=== PATIENT | female | born 1970 | race Caucasian/White ===

== ENCOUNTER 2016-10-26 13:37 | Emergency (ER) | payer OTHER ==
[2016-10-26] MEDS ORDERED: KETOROLAC 30 MG/ML VIAL (J1885) As Ordered ONE (14:55)
[2016-10-26] MEDS ORDERED: GASTROGRAFIN SOLUTION 30ML (Q9963) As Ordered ONE (14:55)
[2016-10-26 15:10] LABS: BASO # 0.2 K/mm3 (0.0-0.2); BASO % 1.6 % (0.0-1.0); EOS # 0.2 K/mm3 (0.0-0.50); EOS % 1.4 % (0.0-3.0); LARGE UNSTAINED CELL # 0.1 K/mm3 (0.0-0.4); LARGE UNSTAINED CELL % 1.2 % (0.0-4.0); LYMPH # 2.6 K/mm3 (1.5-4.5); LYMPH % 22.1 % (24.0-44.0); MEAN CORPUSCULAR HEMOGLOBIN 28.6 pg (27.0-33.0); MEAN CORPUSCULAR HGB CONC 32.9 g/dl (32.0-36.5); MEAN CORPUSCULAR VOLUME 87.1 fl (80.0-96.0); MONO # 0.4 K/mm3 (0.0-0.8); MONO % 3.3 % (0.0-5.0); NEUTROPHILS # 8.1 K/mm3 (1.8-7.7); NEUTROPHILS % 70.4 % (36.0-66.0); PLATELET COUNT, AUTOMATED 393 k/mm3 (150-450); RED CELL DISTRIBUTION WIDTH 13.1 % (11.5-14.5); WHITE BLOOD COUNT 11.5 K/mm3 (4.0-10.0)
[2016-10-26 15:28] LABS: ALBUMIN 3.8 GM/DL (3.2-5.2); ALBUMIN/GLOBULIN RATIO 0.86 (1.00-1.93); ALKALINE PHOSPHATASE 130 U/L (45-117); ALT/SGPT 21 U/L (12-78); AMYLASE 49 U/L (25-115); ANION GAP 8 MEQ/L (8-16); AST/SGOT 15 U/L (15-37); BILIRUBIN,DIRECT 0.1 MG/DL (0.0-0.2); BILIRUBIN,TOTAL 0.4 MG/DL (0.2-1.0); BLOOD UREA NITROGEN 13 MG/DL (7-18); CALCIUM LEVEL 9.4 MG/DL (8.5-10.1); CARBON DIOXIDE LEVEL 29 MEQ/L (21-32); CHLORIDE LEVEL 104 MEQ/L (98-107); CREATININE FOR GFR 0.79 MG/DL (0.55-1.02); GLOMERULAR FILTRATION RATE > 60.0 (>58); GLUCOSE, FASTING 89 MG/DL (70-105); POTASSIUM SERUM 3.9 MEQ/L (3.5-5.1); SODIUM LEVEL 141 MEQ/L (136-145); TOTAL PROTEIN 8.2 GM/DL (6.4-8.2)
[2016-10-26] MEDS ORDERED: ISOVUE-370 76% 100ML VIAL (Q9967) As Ordered ONE (16:32)
--- NOTE | 2016-10-26 17:53 | REP ---
CT ABDOMEN AND PELVIS WITH IV AND ORAL CONTRAST: HISTORY: Epigastric pain. History of multiple surgeries. CT CONTRAST DOSE: 100 mL Isovue-370 is administered intravenously. 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 The patient is status-post lumbosacral spine surgical fusion. There are clips in the right upper quadrant of the abdomen. The lung bases are clear. The liver and the spleen are normal in size, homogenous in texture. No adrenal lesion is seen on either side. There are sutures in the left upper quadrant consistent with gastric bypass surgery. The kidney enhance symmetrically and are morphologically intact. No retroperitoneal mass or adenopathy is seen. A normal appendix is seen in the right lower quadrant. Patient is also status-post hysterectomy. No abdominal wall defect is seen. No bony destructive lesion is appreciated. There is no evidence of free intraperitoneal air, abdominal mass, ascites, or abscess. IMPRESSION: No acute intraabdominal abnormality, postoperative changes including post-cholecystectomy, gastric bypass, lumbosacral spine fusion, and hysterectomy. Signed by Justino Chandler MD 10/26/2016 07:28 P
--- NOTE | 2016-10-26 17:56 | EDDOCDS ---
Nurse's Notes [facility] Name: Richelle Grajeda Age: 46 yrs Sex: Female : 1970 Arrival Date: 10/26/2016 Time: 13:37 Bed I3 / M3 Private MD: Pernell Prescott NCFM Diagnosis: Gastritis, unspecified Presentation: 10/26 13:46 Presenting complaint: Patient states: mid to upper right abdominal pain (x3 days) also srm left back pain. nausea no vomiting or Diarrhea. no abnormal vaginal bleeding. Risk factors: the patient reports no vaginal bleeding. Adult Sepsis Screening: The patient does not have new or worsening altered mentation. Patient's respiratory rate is less than 22. Systolic blood pressure is greater than 100. Patient has a qSOFA score of 0- Negative Sepsis Screen. Suicide/Homicide risk assessment- the patient denies having any suicidal and/or homicidal ideations and does not present with any other emotional, behavioral or mental health complaints. 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 Transition of care: patient was not received from another setting of care. 13:46 Acuity: TRISTIN Level 3 srm 13:46 Method Of Arrival: Walkin/Carried/Asstd srm Triage Assessment: 13:49 General: Appears in no apparent distress, Behavior is appropriate for age, cooperative. srm Pain: Pain currently is 7 out of 10 on a pain scale. HIV screening NA for this visit Offered previously. GI: Reports lower abdominal pain, nausea. 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 vitamins daily 2. Mytab Gas 80 mg oral chew as needed - PMHx: Asthma; Hypertension; - PSHx: Cholecystectomy; Hysterectomy; Tubal ligation; back surgery x2; D & C; Gastric Bypass; - Social history: Smoking status: Patient states was never smoker of tobacco. No barriers to communication noted, The patient speaks fluent Amharic, Speaks appropriately for age. - Family history: Not pertinent. - : The pt / caregiver states he / she is not on anticoagulants. Home medication list is obtained from the patient. - Exposure Risk Screening:: None identified. Screenin:05 Screening information is obtained from the patient. Fall risk: No risks identified. ms18 Assistance ADL's: requires no assistance with activities of daily living. Abuse/DV Screen: The patient / caregiver reports he/she is: not in a situation that causes fear, pain or injury. Nutritional screening: No deficits noted. Advance Directives: There is no living will. home support is adequate. Assessment: 15:05 General: Appears in no apparent distress, comfortable, obese, Behavior is appropriate ms18 for age, cooperative, pleasant. Neurological: Level of Consciousness is awake, alert, obeys commands, Oriented to person, place, time, Gait is steady, Speech is normal. Respiratory: Airway is patent Respiratory effort is even, unlabored, Respiratory pattern is regular, symmetrical. GI: Abdomen is obese, Bowel sounds present X 4 quads. Abd is soft X 4 quads. Derm: Skin is pink, warm & dry. 16:00 General: Appears in no apparent distress, comfortable, obese, Behavior is appropriate js13 for age, cooperative. Neurological: Level of Consciousness is awake, alert, obeys commands. Respiratory: Airway is patent Respiratory effort is even, unlabored, Respiratory pattern is regular, symmetrical. GI: Abdomen is obese, Bowel sounds present X 4 quads. Abd is soft. Derm: Skin is pink, warm & dry. 16:00 Pain: Location: back Pain currently is 3 out of 10 on a pain scale. js13 16:48 General: Appears in no apparent distress, comfortable, Behavior is appropriate for age, js13 cooperative. Pain: Location: back. Neurological: Level of Consciousness is awake, alert, obeys commands. Respiratory: Airway is patent Respiratory effort is even, unlabored, Respiratory pattern is regular, symmetrical. GI: Abdomen is obese, Abd is soft. Derm: Skin is pink, warm & dry. 17:53 Adult Sepsis Screening: The patient does not have new or worsening altered mentation. js13 Patient's respiratory rate is less than 22. Systolic blood pressure is greater than 100. Patient has a qSOFA score of 0- Negative Sepsis Screen. General: Appears in no apparent distress, comfortable, Behavior is appropriate for age, cooperative. Pain: Location: back. Neurological: Level of Consciousness is awake, alert, obeys commands. Respiratory: Airway is patent Respiratory effort is even, unlabored, Respiratory pattern is regular, symmetrical. GI: Abdomen is obese. Derm: Skin is pink, warm & dry. Vital Signs: 13:38 BP 163 / 104; Pulse 73; Resp 16; Temp 97.6(O); Pulse Ox 100% on R/A; Weight 118.39 kg; sew Height 5 ft. 2 in. (157.48 cm); Pain 7/10; 14:21 BP 140 / 89 Sitting (man/lg); jb5 17:54 BP 138 / 93 RA Sitting (auto/lg); Pulse 72; Resp 18; Temp 97.5(T); Pulse Ox 99% on R/A; rs6 Pain 5/10; 13:38 Body Mass Index 47.74 (118.39 kg, 157.48 cm) [facility] [place] Vitals: 13:38 Log In Time: October 26, 2016 at 13:34. [facility] [place] ED Course: 13:38 Patient visited by Rosanna Wolff. sew 13:38 Pernell Prescott is Private Physician. sew 13:38 Patient moved to Waiting sew 13:40 Patient visited by Rosanna Wolff. sew 13:40 Patient moved to Pre RCE sew 13:47 Triage Initiated srm 14:15 Patient moved to Triage 1 jb5 14:21 Patient visited by hRoda Simpson PCA. jb5 14:37 Karina Robledo PA-C is PHCP. dt4 14:37 Matthieu Cheng MD is Attending Physician. dt4 14:37 Patient visited by Karina Robledo PA-C. dt4 14:48 Patient moved to I3 / M3 jb5 15:00 [facility] Payment Agreement was scanned into [employer] and attached to record. mm15 15:04 CRP Sent. ms18 15:04 Amylase Sent. ms18 15:04 CBC with Diff Sent. ms18 15:04 Lipase Sent. ms18 15:04 Liver Profile Sent. ms18 15:04 Urinalysis Sent. ms18 15:04 Urine Culture Sent. ms18 15:05 The patient / caregiver is instructed regarding the plan of care and ED course. ms18 Accompanied by Family Member, Patient has correct armband on for positive identification. Placed in gown. Bed in low position. Call light in reach. Property :Personal belongings accompany Pt. 15:05 Inserted saline lock: 18 gauge in left antecubital area and blood collected. ms18 15:06 Basic Metabolic Profile Sent. ms18 15:38 Azucena PakRN is Primary Nurse. js13 16:01 Patient visited by Azucena Pak RN. js13 16:15 PHCP role handed off by Karina Robledo PA-C ar2 16:15 Frank Poe PA-C is PHCP. ar2 16:49 Patient visited by Azucena Pak RN. js13 17:44 Patient visited by Crystal Barreto COLLAR SEWER. rs6 17:53 Discontinued IV lock intact, bleeding controlled, pressure dressing applied, No js13 redness/swelling at site. No procedures done that require assistance. 17:54 Patient visited by Crystal Barreto COLLAR SEWER. rs6 Administered Medications: 15:00 Drug: ketorolac 30 mg [ketorolac 30 mg/mL (1 mL) injection solution (1 mL)] Route: IVP; js13 Site: left antecubital; 15:15 Follow up: Response: Pain is decreased js13 15:01 Drug: Diatrizoate Meglumine & Sodium 10 ml [diatrizoate meglumine and diat.sodium 66 js13 %-10 % oral solution (10 mL)] Route: PO; 15:31 Drug: Diatrizoate Meglumine & Sodium 10 ml [diatrizoate meglumine and diat.sodium 66 js13 %-10 % oral solution (10 mL)] Route: PO; Order Results: Lab Order: Amylase; SPEC'M 10/26/16 15:03 Test: AMYLASE; Value: 49; Range: 25-115; Units: U/L; Status: F Lab Order: Basic Metabolic Profile; SPEC'M 10/26/16 15:03 Test: GLUCOSE, FASTING; Value: 89; Range: 70-105; Units: MG/DL; Status: F Test: BLOOD UREA NITROGEN; Value: 13; Range: 7-18; Units: MG/DL; Status: F Test: CREATININE FOR GFR; Value: 0.79; Range: 0.55-1.02; Units: MG/DL; Status: F Test: GLOMERULAR FILTRATION RATE; Value: > 60.0; Range: >58; Status: F Test: SODIUM LEVEL; Value: 141; Range: 136-145; Units: MEQ/L; Status: F Test: POTASSIUM SERUM; Value: 3.9; Range: 3.5-5.1; Units: MEQ/L; Status: F Test: CHLORIDE LEVEL; Value: 104; Range: 98-107; Units: MEQ/L; Status: F Test: CARBON DIOXIDE LEVEL; Value: 29; Range: 21-32; Units: MEQ/L; Status: F Test: ANION GAP; Value: 8; Range: 8-16; Units: MEQ/L; Status: F Test: CALCIUM LEVEL; Value: 9.4; Range: 8.5-10.1; Units: MG/DL; Status: F Test Note: ; Units are mL/min/1.73 m2 Chronic Kidney Disease Staging per NKF: Stage I & II GFR >=60 Normal to Mildly Decreased Stage III GFR 30-59 Moderately Decreased Stage IV GFR 15-29 Severely Decreased Stage V GFR <15 Very Little GFR Left ESRD GFR <15 on CLINICAL INFORMATICS MANAGER Lab Order: CBC with Diff; SPEC'M 10/26/16 15:03 Test: WHITE BLOOD COUNT; Value: 11.5; Range: 4.0-10.0; Abnormal: Above high normal; Units: K/mm3; Status: F Test: RED BLOOD COUNT; Value: 5.44; Range: 4.00-5.40; Abnormal: Above high normal; Units: M/mm3; Status: F Test: HEMOGLOBIN; Value: 15.6; Range: 12.0-16.0; Units: g/dl; Status: F Test: HEMATOCRIT; Value: 47.4; Range: 36.0-47.0; Abnormal: Above high normal; Units: %; Status: F Test: MEAN CORPUSCULAR VOLUME; Value: 87.1; Range: 80.0-96.0; Units: fl; Status: F Test: MEAN CORPUSCULAR HEMOGLOBIN; Value: 28.6; Range: 27.0-33.0; Units: pg; Status: F Test: MEAN CORPUSCULAR HGB CONC; Value: 32.9; Range: 32.0-36.5; Units: g/dl; Status: F Test: RED CELL DISTRIBUTION WIDTH; Value: 13.1; Range: 11.5-14.5; Units: %; Status: F Test: PLATELET COUNT, AUTOMATED; Value: 393; Range: 150-450; Units: k/mm3; Status: F Test: NEUTROPHILS %; Value: 70.4; Range: 36.0-66.0; Abnormal: Above high normal; Units: %; Status: F Test: LYMPH %; Value: 22.1; Range: 24.0-44.0; Abnormal: Below low normal; Units: %; Status: F Test: MONO %; Value: 3.3; Range: 0.0-5.0; Units: %; Status: F Test: EOS %; Value: 1.4; Range: 0.0-3.0; Units: %; Status: F Test: BASO %; Value: 1.6; Range: 0.0-1.0; Abnormal: Above high normal; Units: %; Status: F Test: LARGE UNSTAINED CELL %; Value: 1.2; Range: 0.0-4.0; Units: %; Status: F Test: NEUTROPHILS #; Value: 8.1; Range: 1.8-7.7; Abnormal: Above high normal; Units: K/mm3; Status: F Test: LYMPH #; Value: 2.6; Range: 1.5-4.5; Units: K/mm3; Status: F Test: MONO #; Value: 0.4; Range: 0.0-0.8; Units: K/mm3; Status: F Test: EOS #; Value: 0.2; Range: 0.0-0.50; Units: K/mm3; Status: F Test: BASO #; Value: 0.2; Range: 0.0-0.2; Units: K/mm3; Status: F Test: LARGE UNSTAINED CELL #; Value: 0.1; Range: 0.0-0.4; Units: K/mm3; Status: F Lab Order: Lipase; SPEC'M 10/26/16 15:03 Test: LIPASE; Value: 143; Range: 73-393; Units: U/L; Status: F Lab Order: Liver Profile; SPEC'M 10/26/16 15:03 Test: AST/SGOT; Value: 15; Range: 15-37; Units: U/L; Status: F Test: ALT/SGPT; Value: 21; Range: 12-78; Units: U/L; Status: F Test: ALKALINE PHOSPHATASE; Value: 130; Range: 45-117; Abnormal: Above high normal; Units: U/L; Status: F Test: BILIRUBIN,TOTAL; Value: 0.4; Range: 0.2-1.0; Units: MG/DL; Status: F Test: BILIRUBIN,DIRECT; Value: 0.1; Range: 0.0-0.2; Units: MG/DL; Status: F Test: TOTAL PROTEIN; Value: 8.2; Range: 6.4-8.2; Units: GM/DL; Status: F Test: ALBUMIN; Value: 3.8; Range: 3.2-5.2; Units: GM/DL; Status: F Test: ALBUMIN/GLOBULIN RATIO; Value: 0.86; Range: 1.00-1.93; Abnormal: Below low normal; Status: F Lab Order: Urinalysis; SPEC'M 10/26/16 14:55 Test: APPEARANCE, URINE; Value: HAZY; Range: CLEAR; Status: F Test: COLOR, URINE; Value: YELLOW; Range: YELLOW; Status: F Test: PH,URINE; Value: 5.0; Range: 5.0-9.0; Units: UNITS; Status: F Test: SPECIFIC GRAVITY URINE AUTO; Value: 1.026; Range: 1.002-1.035; Status: F Test: PROTEIN, URINE AUTO; Value: NEGATIVE; Range: NEGATIVE; Units: mg/dL; Status: F Test: GLUCOSE, URINE (UA) AUTO; Value: NEGATIVE; Range: NEGATIVE; Units: mg/dL; Status: F Test: KETONE, URINE AUTO; Value: NEGATIVE; Range: NEGATIVE; Units: mg/dL; Status: F Test: UROBILINOGEN, URINE AUTO; Value: 0.2; Range: 0.0-2.0; Units: mg/dL; Status: F Test: BILIRUBIN, URINE AUTO; Value: NEGATIVE; Range: NEGATIVE; Status: F Test: NITRITE, URINE AUTO; Value: NEGATIVE; Range: NEGATIVE; Status: F Test: LEUKOCYTE ESTERASE, URINE AUTO; Value: NEGATIVE; Range: NEGATIVE; Status: F Test: BLOOD, URINE BLOOD; Value: NEGATIVE; Range: NEGATIVE; Status: F Test: WBC, URINE AUTO; Value: 2; Range: 0-3; Units: /HPF; Status: F Test: RBC, URINE AUTO; Value: 3; Range: 0-3; Units: /HPF; Status: F Test: BACTERIA, URINE AUTO; Value: 1+; Range: NEGATIVE; Abnormal: Above high normal; Status: F Test: SQUAMOUS EPITHELIAL CELL UR AU; Value: 3; Range: 0-6; Units: /HPF; Status: F Test: MUCUS, URINE; Value: SMALL; Range: NEGATIVE; Status: F Test: HYALINE CAST, URINE AUTO; Value: 0; Range: 0-1; Units: /LPF; Status: F Lab Order: CRP; SPEC'M 10/26/16 15:03 Test: C REACTIVE PROTEIN QUANTITATIV; Value: 0.59; Range: 0.00-0.30; Abnormal: Above high normal; Units: MG/DL; Status: F Outcome: 17:48 Discharge ordered by Provider. ar2 17:53 Discharge Assessment: Patient awake, alert and oriented x 3. No cognitive and/or js13 functional deficits noted. Patient verbalized understanding of disposition instructions. patient administered narcotics - no. The following High Risk Discharge criteria are identified: None. Discharged to home ambulatory, with family. Condition: stable. Discharge instructions given to patient, Instructed on discharge instructions, follow up and referral plans. medication usage, Demonstrated understanding of instructions, medications, Pt was receptive of discharge instructions/ teaching. Prescriptions given X 1. CT Study completed. 17:54 Patient left the ED. js13 Signatures: Josee Gabriel, RN RN srm Rhoda Simpson, COLLAR SEWER COLLAR SEWER jb5 Frank Poe PA-C PAAnthony ar2 Azucena Pak RN RN js13 Rosanna Wolff Marlynn mm15 Karina Robledo PAAaliyahC PA-C dt4 Amanda Vaca RN RN ms18 Crystal Barreto, COLLAR SEWER COLLAR SEWER rs6 MTDD
--- NOTE | 2016-10-26 17:56 | EDDOCDS ---
Physician Documentation [facility] Name: Richelle Grajeda Age: 46 yrs Sex: Female : 1970 Arrival Date: 10/26/2016 Time: 13:37 Bed I3 / M3 Private MD: Pernell Prescott [facility] Disposition: 10/26/16 17:48 Discharged to Home/Self Care. Impression: Gastritis, unspecified. - Condition is Stable. - Discharge Instructions: Gastritis, Adult. - Prescriptions for Prilosec 20 mg Oral Capsule, Delayed Release(E.C.) - take 1 capsule by ORAL route every 12 hours; 20 capsule. - Medication Reconciliation, Local Pharmacy Hours form. - Follow up: Private Physician; When: Call to arrange an appointment; Reason: Recheck today's complaints, Continuance of care. Follow up: Emergency Department; When: As needed; Reason: Fever > 102F, Worsening of conditions. - Problem is new. - Symptoms are unchanged. Historical: - Allergies: hctz (Rash); - Home Meds: 1. vitamins daily 2. Mytab Gas 80 mg oral chew as needed - PMHx: Asthma; Hypertension; - PSHx: Cholecystectomy; Hysterectomy; Tubal ligation; back surgery x2; D & C; Gastric Bypass; - Social history: Smoking status: Patient states was never smoker of tobacco. No barriers to communication noted, The patient speaks fluent Japanese, Speaks appropriately for age. - Family history: Not pertinent. - : The pt / caregiver states he / she is not on anticoagulants. Home medication list is obtained from the patient. - Exposure Risk Screening:: None identified. 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 2 in. (157.48 cm); Pain 7/10; 14:21 BP 140 / 89 Sitting (man/lg); jb5 17:54 BP 138 / 93 RA Sitting (auto/lg); Pulse 72; Resp 18; Temp 97.5(T); Pulse Ox 99% on R/A; rs6 Pain 5/10; 13:38 Body Mass Index 47.74 (118.39 kg, 157.48 cm) sew MDM: 14:01 Recheck B/P ordered. dt4 14:50 ketorolac 30 mg IVP once ordered. dt4 14:50 IV Saline Lock ordered. dt4 14:50 Undress patient appropriately for examination ordered. dt4 14:51 Amylase Ordered. EDMS 14:51 Basic Metabolic Profile Ordered. EDMS 14:51 CBC with Diff Ordered. EDMS 14:51 Lipase Ordered. EDMS 14:51 Liver Profile Ordered. EDMS 14:51 Urinalysis Ordered. EDMS 14:51 Urine Culture Ordered. EDMS 14:51 CRP Ordered. EDMS 14:51 CT ABD & PELVIS: IV and Oral Contrast Ordered. EDMS 14:51 NOTHING BY MOUTH+DIET ordered. EDMS 14:52 Financial registration complete. mm15 15:00 [facility] Payment Agreement was scanned into [employer] and attached to record. mm15 15:01 Diatrizoate Meglumine & Sodium Liquid 10 ml PO once; mix in 290cc of water ordered. js13 15:01 Diatrizoate Meglumine & Sodium Liquid 10 ml PO once; mix in 290cc of water ordered. js13 16:42 CBC with Diff Reviewed. ar2 16:42 Liver Profile Reviewed. ar2 16:42 Urinalysis Reviewed. ar2 16:42 CRP Reviewed. ar2 16:42 Amylase Reviewed. ar2 16:42 Basic Metabolic Profile Reviewed. ar2 16:42 Lipase Reviewed. ar2 Administered Medications: 15:00 Drug: ketorolac 30 mg [ketorolac 30 mg/mL (1 mL) injection solution (1 mL)] Route: IVP; js13 Site: left antecubital; 15:15 Follow up: Response: Pain is decreased js13 15:01 Drug: Diatrizoate Meglumine & Sodium 10 ml [diatrizoate meglumine and diat.sodium 66 js13 %-10 % oral solution (10 mL)] Route: PO; 15:31 Drug: Diatrizoate Meglumine & Sodium 10 ml [diatrizoate meglumine and diat.sodium 66 js13 %-10 % oral solution (10 mL)] Route: PO; Signatures: Dispatcher [employer] EDMS Josee Gabriel, ELISA RN srm Frank Poe PA-C PA-C ar2 Azucena Pak,RN RN js13 Tamra Velez mm15 Karina Robledo PA-C PA-C dt4 Amanda Vaca RN RN ms18 The chart was reviewed and I authenticate all verbal orders and agree with the evaluation and treatment provided.Attachments: 15:00 [facility] Payment Agreement mm15 MTDD
--- NOTE | 2016-10-29 13:09 | EDDOCDS ---
Nurse's Notes [facility] Name: Richelle Grajeda Age: 46 yrs Sex: Female : 1970 Arrival Date: 10/26/2016 Time: 13:37 Bed I3 / M3 Private MD: Pernell Prescott NCFM Diagnosis: Gastritis, unspecified Presentation: 10/26 13:46 Presenting complaint: Patient states: mid to upper right abdominal pain (x3 days) also srm left back pain. nausea no vomiting or Diarrhea. no abnormal vaginal bleeding. Risk factors: the patient reports no vaginal bleeding. Adult Sepsis Screening: The patient does not have new or worsening altered mentation. Patient's respiratory rate is less than 22. Systolic blood pressure is greater than 100. Patient has a qSOFA score of 0- Negative Sepsis Screen. Suicide/Homicide risk assessment- the patient denies having any suicidal and/or homicidal ideations and does not present with any other emotional, behavioral or mental health complaints. Status: Patient is not a service manager or dependent. Transition of care: patient was not received from another setting of care. 13:46 Acuity: TRISTIN Level 3 srm 13:46 Method Of Arrival: Walkin/Carried/Asstd srm Triage Assessment: 13:49 General: Appears in no apparent distress, Behavior is appropriate for age, cooperative. srm Pain: Pain currently is 7 out of 10 on a pain scale. HIV screening NA for this visit Offered previously. GI: Reports lower abdominal pain, nausea. DIRECTOR OF EMERGENCY NURSING: 13:49 LMP N/A - Hysterectomy srm Historical: - Allergies: hctz (Rash); - Home Meds: 1. vitamins daily 2. Mytab Gas 80 mg oral chew as needed - PMHx: Asthma; Hypertension; - PSHx: Cholecystectomy; Hysterectomy; Tubal ligation; back surgery x2; D & C; Gastric Bypass; - Social history: Smoking status: Patient states was never smoker of tobacco. No barriers to communication noted, The patient speaks fluent Welsh, Speaks appropriately for age. - Family history: Not pertinent. - : The pt / caregiver states he / she is not on anticoagulants. Home medication list is obtained from the patient. - Exposure Risk Screening:: None identified. Screenin:05 Screening information is obtained from the patient. Fall risk: No risks identified. ms18 Assistance ADL's: requires no assistance with activities of daily living. Abuse/DV Screen: The patient / caregiver reports he/she is: not in a situation that causes fear, pain or injury. Nutritional screening: No deficits noted. Advance Directives: There is no living will. home support is adequate. Assessment: 15:05 General: Appears in no apparent distress, comfortable, obese, Behavior is appropriate ms18 for age, cooperative, pleasant. Neurological: Level of Consciousness is awake, alert, obeys commands, Oriented to person, place, time, Gait is steady, Speech is normal. Respiratory: Airway is patent Respiratory effort is even, unlabored, Respiratory pattern is regular, symmetrical. GI: Abdomen is obese, Bowel sounds present X 4 quads. Abd is soft X 4 quads. Derm: Skin is pink, warm & dry. 16:00 General: Appears in no apparent distress, comfortable, obese, Behavior is appropriate js13 for age, cooperative. Neurological: Level of Consciousness is awake, alert, obeys commands. Respiratory: Airway is patent Respiratory effort is even, unlabored, Respiratory pattern is regular, symmetrical. GI: Abdomen is obese, Bowel sounds present X 4 quads. Abd is soft. Derm: Skin is pink, warm & dry. 16:00 Pain: Location: back Pain currently is 3 out of 10 on a pain scale. js13 16:48 General: Appears in no apparent distress, comfortable, Behavior is appropriate for age, js13 cooperative. Pain: Location: back. Neurological: Level of Consciousness is awake, alert, obeys commands. Respiratory: Airway is patent Respiratory effort is even, unlabored, Respiratory pattern is regular, symmetrical. GI: Abdomen is obese, Abd is soft. Derm: Skin is pink, warm & dry. 17:53 Adult Sepsis Screening: The patient does not have new or worsening altered mentation. js13 Patient's respiratory rate is less than 22. Systolic blood pressure is greater than 100. Patient has a qSOFA score of 0- Negative Sepsis Screen. General: Appears in no apparent distress, comfortable, Behavior is appropriate for age, cooperative. Pain: Location: back. Neurological: Level of Consciousness is awake, alert, obeys commands. Respiratory: Airway is patent Respiratory effort is even, unlabored, Respiratory pattern is regular, symmetrical. GI: Abdomen is obese. Derm: Skin is pink, warm & dry. Vital Signs: 13:38 BP 163 / 104; Pulse 73; Resp 16; Temp 97.6(O); Pulse Ox 100% on R/A; Weight 118.39 kg; sew Height 5 ft. 2 in. (157.48 cm); Pain 7/10; 14:21 BP 140 / 89 Sitting (man/lg); jb5 17:54 BP 138 / 93 RA Sitting (auto/lg); Pulse 72; Resp 18; Temp 97.5(T); Pulse Ox 99% on R/A; rs6 Pain 5/10; 13:38 Body Mass Index 47.74 (118.39 kg, 157.48 cm) [facility] Vitals: 13:38 Log In Time: October 26, 2016 at 13:34. [facility] ED Course: 13:38 Patient visited by Rosanna Wolff. sew 13:38 Pernell Prescott is Private Physician. sew 13:38 Patient moved to Waiting sew 13:40 Patient visited by Rosanna Wolff. sew 13:40 Patient moved to Pre RCE sew 13:47 Triage Initiated srm 14:15 Patient moved to Triage 1 jb5 14:21 Patient visited by Rhoda Simpson PCA. jb5 14:37 Karina Robledo PA-C is PHCP. dt4 14:37 Matthieu Cheng MD is Attending Physician. dt4 14:37 Patient visited by Karina Robledo PA-C. dt4 14:48 Patient moved to I3 / M3 jb5 15:00 [facility] Payment Agreement was scanned into [employer] and attached to record. mm15 15:04 CRP Sent. ms18 15:04 Amylase Sent. ms18 15:04 CBC with Diff Sent. ms18 15:04 Lipase Sent. ms18 15:04 Liver Profile Sent. ms18 15:04 Urinalysis Sent. ms18 15:04 Urine Culture Sent. ms18 15:05 The patient / caregiver is instructed regarding the plan of care and ED course. ms18 Accompanied by Family Member, Patient has correct armband on for positive identification. Placed in gown. Bed in low position. Call light in reach. Property :Personal belongings accompany Pt. 15:05 Inserted saline lock: 18 gauge in left antecubital area and blood collected. ms18 15:06 Basic Metabolic Profile Sent. ms18 15:38 Azucena Pak,RN is Primary Nurse. js13 16:01 Patient visited by Azucena Pak RN. js13 16:15 PHCP role handed off by Karina Robledo PA-C ar2 16:15 Frank Poe PA-C is PHCP. ar2 16:49 Patient visited by Azucena Pak RN. js13 17:44 Patient visited by Crystal Barreto PCA. rs6 17:53 Discontinued IV lock intact, bleeding controlled, pressure dressing applied, No js13 redness/swelling at site. No procedures done that require assistance. 17:54 Patient visited by Crystal Barreto PCA. rs6 18:38 CT ABD & PELVIS: IV and Oral Contrast Returned. EDMS 10/27 09:28 T-Sheet-- Draft Copy was scanned into [employer] and attached to record. [facility] 11:57 Radiology Report was scanned into [employer] and attached to record. gb Administered Medications: 10/26 15:00 Drug: ketorolac 30 mg [ketorolac 30 mg/mL (1 mL) injection solution (1 mL)] Route: IVP; js13 Site: left antecubital; 15:15 Follow up: Response: Pain is decreased js13 15:01 Drug: Diatrizoate Meglumine & Sodium 10 ml [diatrizoate meglumine and diat.sodium 66 js13 %-10 % oral solution (10 mL)] Route: PO; 15:31 Drug: Diatrizoate Meglumine & Sodium 10 ml [diatrizoate meglumine and diat.sodium 66 js13 %-10 % oral solution (10 mL)] Route: PO; Order Results: Lab Order: Amylase; SPEC'M 10/26/16 15:03 Test: AMYLASE; Value: 49; Range: 25-115; Units: U/L; Status: F Lab Order: Basic Metabolic Profile; SPEC'M 10/26/16 15:03 Test: GLUCOSE, FASTING; Value: 89; Range: 70-105; Units: MG/DL; Status: F Test: BLOOD UREA NITROGEN; Value: 13; Range: 7-18; Units: MG/DL; Status: F Test: CREATININE FOR GFR; Value: 0.79; Range: 0.55-1.02; Units: MG/DL; Status: F Test: GLOMERULAR FILTRATION RATE; Value: > 60.0; Range: >58; Status: F Test: SODIUM LEVEL; Value: 141; Range: 136-145; Units: MEQ/L; Status: F Test: POTASSIUM SERUM; Value: 3.9; Range: 3.5-5.1; Units: MEQ/L; Status: F Test: CHLORIDE LEVEL; Value: 104; Range: 98-107; Units: MEQ/L; Status: F Test: CARBON DIOXIDE LEVEL; Value: 29; Range: 21-32; Units: MEQ/L; Status: F Test: ANION GAP; Value: 8; Range: 8-16; Units: MEQ/L; Status: F Test: CALCIUM LEVEL; Value: 9.4; Range: 8.5-10.1; Units: MG/DL; Status: F Test Note: ; Units are mL/min/1.73 m2 Chronic Kidney Disease Staging per NKF: Stage I & II GFR >=60 Normal to Mildly Decreased Stage III GFR 30-59 Moderately Decreased Stage IV GFR 15-29 Severely Decreased Stage V GFR <15 Very Little GFR Left ESRD GFR <15 on EMBEDDED CASE MANAGER Lab Order: CBC with Diff; SPEC'M 10/26/16 15:03 Test: WHITE BLOOD COUNT; Value: 11.5; Range: 4.0-10.0; Abnormal: Above high normal; Units: K/mm3; Status: F Test: RED BLOOD COUNT; Value: 5.44; Range: 4.00-5.40; Abnormal: Above high normal; Units: M/mm3; Status: F Test: HEMOGLOBIN; Value: 15.6; Range: 12.0-16.0; Units: g/dl; Status: F Test: HEMATOCRIT; Value: 47.4; Range: 36.0-47.0; Abnormal: Above high normal; Units: %; Status: F Test: MEAN CORPUSCULAR VOLUME; Value: 87.1; Range: 80.0-96.0; Units: fl; Status: F Test: MEAN CORPUSCULAR HEMOGLOBIN; Value: 28.6; Range: 27.0-33.0; Units: pg; Status: F Test: MEAN CORPUSCULAR HGB CONC; Value: 32.9; Range: 32.0-36.5; Units: g/dl; Status: F Test: RED CELL DISTRIBUTION WIDTH; Value: 13.1; Range: 11.5-14.5; Units: %; Status: F Test: PLATELET COUNT, AUTOMATED; Value: 393; Range: 150-450; Units: k/mm3; Status: F Test: NEUTROPHILS %; Value: 70.4; Range: 36.0-66.0; Abnormal: Above high normal; Units: %; Status: F Test: LYMPH %; Value: 22.1; Range: 24.0-44.0; Abnormal: Below low normal; Units: %; Status: F Test: MONO %; Value: 3.3; Range: 0.0-5.0; Units: %; Status: F Test: EOS %; Value: 1.4; Range: 0.0-3.0; Units: %; Status: F Test: BASO %; Value: 1.6; Range: 0.0-1.0; Abnormal: Above high normal; Units: %; Status: F Test: LARGE UNSTAINED CELL %; Value: 1.2; Range: 0.0-4.0; Units: %; Status: F Test: NEUTROPHILS #; Value: 8.1; Range: 1.8-7.7; Abnormal: Above high normal; Units: K/mm3; Status: F Test: LYMPH #; Value: 2.6; Range: 1.5-4.5; Units: K/mm3; Status: F Test: MONO #; Value: 0.4; Range: 0.0-0.8; Units: K/mm3; Status: F Test: EOS #; Value: 0.2; Range: 0.0-0.50; Units: K/mm3; Status: F Test: BASO #; Value: 0.2; Range: 0.0-0.2; Units: K/mm3; Status: F Test: LARGE UNSTAINED CELL #; Value: 0.1; Range: 0.0-0.4; Units: K/mm3; Status: F Lab Order: Lipase; SPEC'M 10/26/16 15:03 Test: LIPASE; Value: 143; Range: 73-393; Units: U/L; Status: F Lab Order: Liver Profile; SPEC'M 10/26/16 15:03 Test: AST/SGOT; Value: 15; Range: 15-37; Units: U/L; Status: F Test: ALT/SGPT; Value: 21; Range: 12-78; Units: U/L; Status: F Test: ALKALINE PHOSPHATASE; Value: 130; Range: 45-117; Abnormal: Above high normal; Units: U/L; Status: F Test: BILIRUBIN,TOTAL; Value: 0.4; Range: 0.2-1.0; Units: MG/DL; Status: F Test: BILIRUBIN,DIRECT; Value: 0.1; Range: 0.0-0.2; Units: MG/DL; Status: F Test: TOTAL PROTEIN; Value: 8.2; Range: 6.4-8.2; Units: GM/DL; Status: F Test: ALBUMIN; Value: 3.8; Range: 3.2-5.2; Units: GM/DL; Status: F Test: ALBUMIN/GLOBULIN RATIO; Value: 0.86; Range: 1.00-1.93; Abnormal: Below low normal; Status: F Lab Order: Urinalysis; SPEC'M 10/26/16 14:55 Test: APPEARANCE, URINE; Value: HAZY; Range: CLEAR; Status: F Test: COLOR, URINE; Value: YELLOW; Range: YELLOW; Status: F Test: PH,URINE; Value: 5.0; Range: 5.0-9.0; Units: UNITS; Status: F Test: SPECIFIC GRAVITY URINE AUTO; Value: 1.026; Range: 1.002-1.035; Status: F Test: PROTEIN, URINE AUTO; Value: NEGATIVE; Range: NEGATIVE; Units: mg/dL; Status: F Test: GLUCOSE, URINE (UA) AUTO; Value: NEGATIVE; Range: NEGATIVE; Units: mg/dL; Status: F Test: KETONE, URINE AUTO; Value: NEGATIVE; Range: NEGATIVE; Units: mg/dL; Status: F Test: UROBILINOGEN, URINE AUTO; Value: 0.2; Range: 0.0-2.0; Units: mg/dL; Status: F Test: BILIRUBIN, URINE AUTO; Value: NEGATIVE; Range: NEGATIVE; Status: F Test: NITRITE, URINE AUTO; Value: NEGATIVE; Range: NEGATIVE; Status: F Test: LEUKOCYTE ESTERASE, URINE AUTO; Value: NEGATIVE; Range: NEGATIVE; Status: F Test: BLOOD, URINE BLOOD; Value: NEGATIVE; Range: NEGATIVE; Status: F Test: WBC, URINE AUTO; Value: 2; Range: 0-3; Units: /HPF; Status: F Test: RBC, URINE AUTO; Value: 3; Range: 0-3; Units: /HPF; Status: F Test: BACTERIA, URINE AUTO; Value: 1+; Range: NEGATIVE; Abnormal: Above high normal; Status: F Test: SQUAMOUS EPITHELIAL CELL UR AU; Value: 3; Range: 0-6; Units: /HPF; Status: F Test: MUCUS, URINE; Value: SMALL; Range: NEGATIVE; Status: F Test: HYALINE CAST, URINE AUTO; Value: 0; Range: 0-1; Units: /LPF; Status: F Lab Order: Urine Culture; SPEC'M 10/26/16 14:54 Test: URINE CULTURE; Value: ORGANISM 1: ENTEROBACTER AEROGENES; Status: F Test: URINE CULTURE; Value: ENTEROBACTER AEROGENES; Status: F Test: URINE CULTURE; Value: COLONY COUNT CFU/ml >100,000; Status: F Test: URINE CULTURE; Value: GRAM NEG SENSI - VITEK 80; Status: F Test: URINE CULTURE; Value: Method: VIT2; Status: F Test: URINE CULTURE; Value: TRIMETHOPRIM/SULFAMETHOXAZOLE <=20 S; Status: F Test: URINE CULTURE; Value: GENTAMICIN <=1 S; Status: F Test: URINE CULTURE; Value: NITROFURANTOIN 64 I; Status: F Test: URINE CULTURE; Value: CEFAZOLIN >=64 R; Status: F Test: URINE CULTURE; Value: LEVOFLOXACIN <=0.12 S; Status: F Test: URINE CULTURE; Value: TOBRAMYCIN <=1 S; Status: F Test: URINE CULTURE; Value: CEFTRIAXONE <=1 S; Status: F Test: URINE CULTURE; Value: CEFTAZIDIME <=1 S; Status: F Test: URINE CULTURE; Value: PIPERACILLIN/TAZOBACTAM 8 S; Status: F Test: URINE CULTURE; Value: AZTREONAM <=1 S; Status: F Test: URINE CULTURE; Value: ERTAPENEM <=0.5 S; Status: F Test: URINE CULTURE; Value: MEROPENEM <=0.25 S; Status: F Test: URINE CULTURE; Value: TIGECYCLINE 1 S; Status: F Test: URINE CULTURE; Value: CEFEPIME <=1 S; Status: F Lab Order: CRP; SPEC'M 10/26/16 15:03 Test: C REACTIVE PROTEIN QUANTITATIV; Value: 0.59; Range: 0.00-0.30; Abnormal: Above high normal; Units: MG/DL; Status: F Radiology Order: CT ABD & PELVIS: IV and Oral Contrast Test: CT ABD & PELVIS: IV and Oral Contrast REASON FOR EXAMINATION: epigastric pain, hx of mult surg; CT ABDOMEN AND PELVIS WITH IV AND ORAL CONTRAST:; ; HISTORY: Epigastric pain. 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 The patient is status-post lumbosacral spine surgical fusion. There; are clips in the right upper quadrant of the abdomen. The lung bases are clear.; The liver and the spleen are normal in size, homogenous in texture. No adrenal; lesion is seen on either side. There are sutures in the left upper quadrant; consistent with gastric bypass surgery. The kidney enhance symmetrically and are; morphologically intact. No retroperitoneal mass or adenopathy is seen. A normal; appendix is seen in the right lower quadrant. Patient is also status-post; hysterectomy. No abdominal wall defect is seen. No bony destructive lesion is; appreciated. There is no evidence of free intraperitoneal air, abdominal mass,; ascites, or abscess.; ; IMPRESSION:; ; No acute intraabdominal abnormality, postoperative changes including; post-cholecystectomy, gastric bypass, lumbosacral spine fusion, and hysterectomy.; ; ; ; Signed by; Justino Chandler MD 10/26/2016 07:28 P; Outcome: 17:48 Discharge ordered by Provider. ar2 17:53 Discharge Assessment: Patient awake, alert and oriented x 3. No cognitive and/or js13 functional deficits noted. Patient verbalized understanding of disposition instructions. patient administered narcotics - no. The following High Risk Discharge criteria are identified: None. Discharged to home ambulatory, with family. Condition: stable. Discharge instructions given to patient, Instructed on discharge instructions, follow up and referral plans. medication usage, Demonstrated understanding of instructions, medications, Pt was receptive of discharge instructions/ teaching. Prescriptions given X 1. CT Study completed. 17:54 Patient left the ED. js13 Addendum: 10/29/2016 13:06 Narrative: Urine culture results reviewed with Gunner Camacho and Rx written for Bactrim DS kcs 1 tab BID x 5 days - patient contacted and requests [facility] in [place]. Rx called in. Signatures: Dispatcher [employer] EDMS Luz Elena Eaton, RN RN kcs Josee Gabriel, RN RN srm Barmerary, Dania, Reg Reg gb Rhoda Simpson, SHRIMP PEELING MACHINE OPERATOR SHRIMP PEELING MACHINE OPERATOR jb5 Frank Poe PA-C PA-C ar2 Azucena Pak RN RN js13 New, Tamra Resendez mm15 Karina Robledo PA-C PA-Vangie dt4 Amanda Vaca RN RN ms18 Crystal Barreto, SHRIMP PEELING MACHINE OPERATOR SHRIMP PEELING MACHINE OPERATOR rs6 Kitty, Rosanna munoz MTDD
--- NOTE | 2016-10-29 13:09 | EDDOCDS ---
Physician Documentation [facility] Name: Richelle Grajeda Age: 46 yrs Sex: Female : 1970 Arrival Date: 10/26/2016 Time: 13:37 Bed I3 / M3 Private MD: Pernell Prescott [facility] Disposition: 10/26/16 17:48 Discharged to Home/Self Care. Impression: Gastritis, unspecified. - Condition is Stable. - Discharge Instructions: Gastritis, Adult. - Prescriptions for Prilosec 20 mg Oral Capsule, Delayed Release(E.C.) - take 1 capsule by ORAL route every 12 hours; 20 capsule. - Medication Reconciliation, Local Pharmacy Hours form. - Follow up: Private Physician; When: Call to arrange an appointment; Reason: Recheck today's complaints, Continuance of care. Follow up: Emergency Department; When: As needed; Reason: Fever > 102F, Worsening of conditions. - Problem is new. - Symptoms are unchanged. Historical: - Allergies: hctz (Rash); - Home Meds: 1. vitamins daily 2. Mytab Gas 80 mg oral chew as needed - PMHx: Asthma; Hypertension; - PSHx: Cholecystectomy; Hysterectomy; Tubal ligation; back surgery x2; D & C; Gastric Bypass; - Social history: Smoking status: Patient states was never smoker of tobacco. No barriers to communication noted, The patient speaks fluent Persian, Speaks appropriately for age. - Family history: Not pertinent. - : The pt / caregiver states he / she is not on anticoagulants. Home medication list is obtained from the patient. - Exposure Risk Screening:: None identified. PULMONARY PHYSICIAN: 10/26 13:49 LMP N/A - Hysterectomy srm Vital Signs: 13:38 BP 163 / 104; Pulse 73; Resp 16; Temp 97.6(O); Pulse Ox 100% on R/A; Weight 118.39 kg / sew 261.01 lbs; Height 5 ft. 2 in. (157.48 cm); Pain 7/10; 14:21 BP 140 / 89 Sitting (man/lg); jb5 17:54 BP 138 / 93 RA Sitting (auto/lg); Pulse 72; Resp 18; Temp 97.5(T); Pulse Ox 99% on R/A; rs6 Pain 5/10; 13:38 Body Mass Index 47.74 (118.39 kg, 157.48 cm) sew MDM: 14:01 Recheck B/P ordered. dt4 14:50 ketorolac 30 mg IVP once ordered. dt4 14:50 IV Saline Lock ordered. dt4 14:50 Undress patient appropriately for examination ordered. dt4 14:51 Amylase Ordered. EDMS 14:51 Basic Metabolic Profile Ordered. EDMS 14:51 CBC with Diff Ordered. EDMS 14:51 Lipase Ordered. EDMS 14:51 Liver Profile Ordered. EDMS 14:51 Urinalysis Ordered. EDMS 14:51 Urine Culture Ordered. EDMS 14:51 CRP Ordered. EDMS 14:51 CT ABD & PELVIS: IV and Oral Contrast Ordered. EDMS 14:51 NOTHING BY MOUTH+DIET ordered. EDMS 14:52 Financial registration complete. mm15 15:00 [facility] Payment Agreement was scanned into [employer] and attached to record. mm15 15:01 Diatrizoate Meglumine & Sodium Liquid 10 ml PO once; mix in 290cc of water ordered. js13 15:01 Diatrizoate Meglumine & Sodium Liquid 10 ml PO once; mix in 290cc of water ordered. js13 16:42 CBC with Diff Reviewed. ar2 16:42 Liver Profile Reviewed. ar2 16:42 Urinalysis Reviewed. ar2 16:42 CRP Reviewed. ar2 16:42 Amylase Reviewed. ar2 16:42 Basic Metabolic Profile Reviewed. ar2 16:42 Lipase Reviewed. ar2 10/27 09:28 T-Sheet-- Draft Copy was scanned into [employer] and attached to record. [facility] 11:57 Radiology Report was scanned into [employer] and attached to record. gb Administered Medications: 10/26 15:00 Drug: ketorolac 30 mg [ketorolac 30 mg/mL (1 mL) injection solution (1 mL)] Route: IVP; js13 Site: left antecubital; 15:15 Follow up: Response: Pain is decreased js13 15:01 Drug: Diatrizoate Meglumine & Sodium 10 ml [diatrizoate meglumine and diat.sodium 66 js13 %-10 % oral solution (10 mL)] Route: PO; 15:31 Drug: Diatrizoate Meglumine & Sodium 10 ml [diatrizoate meglumine and diat.sodium 66 js13 %-10 % oral solution (10 mL)] Route: PO; Signatures: Dispatcher [employer] EDJosee Chung, ELISA RN [facility] Dania Bai, Reg Reg gb Frank Poe PA-C PA-C ar2 Azucena Pak RN RN js13 Tamra Velez mm15 Karina Robledo PA-C PA-C dt4 Amanda Vaca RN RN ms18 Rosanna Tang The chart was reviewed and I authenticate all verbal orders and agree with the evaluation and treatment provided.Attachments: 15:00 [facility] Payment Agreement mm15 10/27 09:28 T-Sheet-- Draft Copy [facility] MTDD
--- NOTE | 2016-10-29 13:09 | EDDOCDS ---
Physician Documentation [facility] Name: Richelle Grajeda Age: 46 yrs Sex: Female : 1970 Arrival Date: 10/26/2016 Time: 13:37 Bed I3 / M3 Private MD: Pernell Prescott [facility] Disposition: 10/26/16 17:48 Discharged to Home/Self Care. Impression: Gastritis, unspecified. - Condition is Stable. - Discharge Instructions: Gastritis, Adult. - Prescriptions for Prilosec 20 mg Oral Capsule, Delayed Release(E.C.) - take 1 capsule by ORAL route every 12 hours; 20 capsule. - Medication Reconciliation, Local Pharmacy Hours form. - Follow up: Private Physician; When: Call to arrange an appointment; Reason: Recheck today's complaints, Continuance of care. Follow up: Emergency Department; When: As needed; Reason: Fever > 102F, Worsening of conditions. - Problem is new. - Symptoms are unchanged. Historical: - Allergies: hctz (Rash); - Home Meds: 1. vitamins daily 2. Mytab Gas 80 mg oral chew as needed - PMHx: Asthma; Hypertension; - PSHx: Cholecystectomy; Hysterectomy; Tubal ligation; back surgery x2; D & C; Gastric Bypass; - Social history: Smoking status: Patient states was never smoker of tobacco. No barriers to communication noted, The patient speaks fluent Indonesian, Speaks appropriately for age. - Family history: Not pertinent. - : The pt / caregiver states he / she is not on anticoagulants. Home medication list is obtained from the patient. - Exposure Risk Screening:: None identified. 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 2 in. (157.48 cm); Pain 7/10; 14:21 BP 140 / 89 Sitting (man/lg); jb5 17:54 BP 138 / 93 RA Sitting (auto/lg); Pulse 72; Resp 18; Temp 97.5(T); Pulse Ox 99% on R/A; rs6 Pain 5/10; 13:38 Body Mass Index 47.74 (118.39 kg, 157.48 cm) sew MDM: 14:01 Recheck B/P ordered. dt4 14:50 ketorolac 30 mg IVP once ordered. dt4 14:50 IV Saline Lock ordered. dt4 14:50 Undress patient appropriately for examination ordered. dt4 14:51 Amylase Ordered. EDMS 14:51 Basic Metabolic Profile Ordered. EDMS 14:51 CBC with Diff Ordered. EDMS 14:51 Lipase Ordered. EDMS 14:51 Liver Profile Ordered. EDMS 14:51 Urinalysis Ordered. EDMS 14:51 Urine Culture Ordered. EDMS 14:51 CRP Ordered. EDMS 14:51 CT ABD & PELVIS: IV and Oral Contrast Ordered. EDMS 14:51 NOTHING BY MOUTH+DIET ordered. EDMS 14:52 Financial registration complete. mm15 15:00 [facility] Payment Agreement was scanned into [employer] and attached to record. mm15 15:01 Diatrizoate Meglumine & Sodium Liquid 10 ml PO once; mix in 290cc of water ordered. js13 15:01 Diatrizoate Meglumine & Sodium Liquid 10 ml PO once; mix in 290cc of water ordered. js13 16:42 CBC with Diff Reviewed. ar2 16:42 Liver Profile Reviewed. ar2 16:42 Urinalysis Reviewed. ar2 16:42 CRP Reviewed. ar2 16:42 Amylase Reviewed. ar2 16:42 Basic Metabolic Profile Reviewed. ar2 16:42 Lipase Reviewed. ar2 10/27 09:28 T-Sheet-- Draft Copy was scanned into [employer] and attached to record. [facility] 11:57 Radiology Report was scanned into [employer] and attached to record. gb Administered Medications: 10/26 15:00 Drug: ketorolac 30 mg [ketorolac 30 mg/mL (1 mL) injection solution (1 mL)] Route: IVP; js13 Site: left antecubital; 15:15 Follow up: Response: Pain is decreased js13 15:01 Drug: Diatrizoate Meglumine & Sodium 10 ml [diatrizoate meglumine and diat.sodium 66 js13 %-10 % oral solution (10 mL)] Route: PO; 15:31 Drug: Diatrizoate Meglumine & Sodium 10 ml [diatrizoate meglumine and diat.sodium 66 js13 %-10 % oral solution (10 mL)] Route: PO; Signatures: Dispatcher [employer] EDJosee Chung, ELISA RN [facility] Dania Bai, Reg Reg gb Frank Poe PA-C PA-C ar2 Azucena Pak RN RN js13 Tamra Velez mm15 Karina Robledo PA-C PA-C dt4 Amanda Vaca RN RN ms18 Rosanna Tang The chart was reviewed and I authenticate all verbal orders and agree with the evaluation and treatment provided.Attachments: 15:00 [facility] Payment Agreement mm15 10/27 09:28 T-Sheet-- Draft Copy [facility] MTDD
--- NOTE | 2016-10-30 09:34 | EDDOCDS ---
Nurse's Notes [facility] Name: Richelle Grajeda Age: 46 yrs Sex: Female : 1970 Arrival Date: 10/26/2016 Time: 13:37 Bed I3 / M3 Private MD: Pernell Prescott NCFM Diagnosis: Gastritis, unspecified Presentation: 10/26 13:46 Presenting complaint: Patient states: mid to upper right abdominal pain (x3 days) also srm left back pain. nausea no vomiting or Diarrhea. no abnormal vaginal bleeding. Risk factors: the patient reports no vaginal bleeding. Adult Sepsis Screening: The patient does not have new or worsening altered mentation. Patient's respiratory rate is less than 22. Systolic blood pressure is greater than 100. Patient has a qSOFA score of 0- Negative Sepsis Screen. Suicide/Homicide risk assessment- the patient denies having any suicidal and/or homicidal ideations and does not present with any other emotional, behavioral or mental health complaints. Status: Patient is not a gas refrigerator servicer or dependent. Transition of care: patient was not received from another setting of care. 13:46 Acuity: TRISTIN Level 3 srm 13:46 Method Of Arrival: Walkin/Carried/Asstd srm Triage Assessment: 13:49 General: Appears in no apparent distress, Behavior is appropriate for age, cooperative. srm Pain: Pain currently is 7 out of 10 on a pain scale. HIV screening NA for this visit Offered previously. GI: Reports lower abdominal pain, nausea. 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 vitamins daily 2. Mytab Gas 80 mg oral chew as needed - PMHx: Asthma; Hypertension; - PSHx: Cholecystectomy; Hysterectomy; Tubal ligation; back surgery x2; D & C; Gastric Bypass; - Social history: Smoking status: Patient states was never smoker of tobacco. No barriers to communication noted, The patient speaks fluent Tajik, Speaks appropriately for age. - Family history: Not pertinent. - : The pt / caregiver states he / she is not on anticoagulants. Home medication list is obtained from the patient. - Exposure Risk Screening:: None identified. Screenin:05 Screening information is obtained from the patient. Fall risk: No risks identified. ms18 Assistance ADL's: requires no assistance with activities of daily living. Abuse/DV Screen: The patient / caregiver reports he/she is: not in a situation that causes fear, pain or injury. Nutritional screening: No deficits noted. Advance Directives: There is no living will. home support is adequate. Assessment: 15:05 General: Appears in no apparent distress, comfortable, obese, Behavior is appropriate ms18 for age, cooperative, pleasant. Neurological: Level of Consciousness is awake, alert, obeys commands, Oriented to person, place, time, Gait is steady, Speech is normal. Respiratory: Airway is patent Respiratory effort is even, unlabored, Respiratory pattern is regular, symmetrical. GI: Abdomen is obese, Bowel sounds present X 4 quads. Abd is soft X 4 quads. Derm: Skin is pink, warm & dry. 16:00 General: Appears in no apparent distress, comfortable, obese, Behavior is appropriate js13 for age, cooperative. Neurological: Level of Consciousness is awake, alert, obeys commands. Respiratory: Airway is patent Respiratory effort is even, unlabored, Respiratory pattern is regular, symmetrical. GI: Abdomen is obese, Bowel sounds present X 4 quads. Abd is soft. Derm: Skin is pink, warm & dry. 16:00 Pain: Location: back Pain currently is 3 out of 10 on a pain scale. js13 16:48 General: Appears in no apparent distress, comfortable, Behavior is appropriate for age, js13 cooperative. Pain: Location: back. Neurological: Level of Consciousness is awake, alert, obeys commands. Respiratory: Airway is patent Respiratory effort is even, unlabored, Respiratory pattern is regular, symmetrical. GI: Abdomen is obese, Abd is soft. Derm: Skin is pink, warm & dry. 17:53 Adult Sepsis Screening: The patient does not have new or worsening altered mentation. js13 Patient's respiratory rate is less than 22. Systolic blood pressure is greater than 100. Patient has a qSOFA score of 0- Negative Sepsis Screen. General: Appears in no apparent distress, comfortable, Behavior is appropriate for age, cooperative. Pain: Location: back. Neurological: Level of Consciousness is awake, alert, obeys commands. Respiratory: Airway is patent Respiratory effort is even, unlabored, Respiratory pattern is regular, symmetrical. GI: Abdomen is obese. Derm: Skin is pink, warm & dry. Vital Signs: 13:38 BP 163 / 104; Pulse 73; Resp 16; Temp 97.6(O); Pulse Ox 100% on R/A; Weight 118.39 kg; sew Height 5 ft. 2 in. (157.48 cm); Pain 7/10; 14:21 BP 140 / 89 Sitting (man/lg); jb5 17:54 BP 138 / 93 RA Sitting (auto/lg); Pulse 72; Resp 18; Temp 97.5(T); Pulse Ox 99% on R/A; rs6 Pain 5/10; 13:38 Body Mass Index 47.74 (118.39 kg, 157.48 cm) [facility] Vitals: 13:38 Log In Time: October 26, 2016 at 13:34. [facility] ED Course: 13:38 Patient visited by Rosanna Wolff. sew 13:38 Pernell Prescott is Private Physician. sew 13:38 Patient moved to Waiting sew 13:40 Patient visited by Rosanna Wolff. sew 13:40 Patient moved to Pre RCE sew 13:47 Triage Initiated srm 14:15 Patient moved to Triage 1 jb5 14:21 Patient visited by Rhoda Simpson PCA. jb5 14:37 Karina Robledo PA-C is PHCP. dt4 14:37 Matthieu Cheng MD is Attending Physician. dt4 14:37 Patient visited by Karina Robledo PA-C. dt4 14:48 Patient moved to I3 / M3 jb5 15:00 [facility] Payment Agreement was scanned into [employer] and attached to record. mm15 15:04 CRP Sent. ms18 15:04 Amylase Sent. ms18 15:04 CBC with Diff Sent. ms18 15:04 Lipase Sent. ms18 15:04 Liver Profile Sent. ms18 15:04 Urinalysis Sent. ms18 15:04 Urine Culture Sent. ms18 15:05 The patient / caregiver is instructed regarding the plan of care and ED course. ms18 Accompanied by Family Member, Patient has correct armband on for positive identification. Placed in gown. Bed in low position. Call light in reach. Property :Personal belongings accompany Pt. 15:05 Inserted saline lock: 18 gauge in left antecubital area and blood collected. ms18 15:06 Basic Metabolic Profile Sent. ms18 15:38 Azucena Pak,RN is Primary Nurse. js13 16:01 Patient visited by Azucena Pak RN. js13 16:15 PHCP role handed off by Karina Robledo PA-C ar2 16:15 Frank Poe PA-C is PHCP. ar2 16:49 Patient visited by Azucena Pak RN. js13 17:44 Patient visited by Crystal Barreto PCA. rs6 17:53 Discontinued IV lock intact, bleeding controlled, pressure dressing applied, No js13 redness/swelling at site. No procedures done that require assistance. 17:54 Patient visited by Crystal Barreto PCA. rs6 18:38 CT ABD & PELVIS: IV and Oral Contrast Returned. EDMS 10/27 09:28 T-Sheet-- Draft Copy was scanned into [employer] and attached to record. [facility] 11:57 Radiology Report was scanned into [employer] and attached to record. gb Administered Medications: 10/26 15:00 Drug: ketorolac 30 mg [ketorolac 30 mg/mL (1 mL) injection solution (1 mL)] Route: IVP; js13 Site: left antecubital; 15:15 Follow up: Response: Pain is decreased js13 15:01 Drug: Diatrizoate Meglumine & Sodium 10 ml [diatrizoate meglumine and diat.sodium 66 js13 %-10 % oral solution (10 mL)] Route: PO; 15:31 Drug: Diatrizoate Meglumine & Sodium 10 ml [diatrizoate meglumine and diat.sodium 66 js13 %-10 % oral solution (10 mL)] Route: PO; Order Results: Lab Order: Amylase; SPEC'M 10/26/16 15:03 Test: AMYLASE; Value: 49; Range: 25-115; Units: U/L; Status: F Lab Order: Basic Metabolic Profile; SPEC'M 10/26/16 15:03 Test: GLUCOSE, FASTING; Value: 89; Range: 70-105; Units: MG/DL; Status: F Test: BLOOD UREA NITROGEN; Value: 13; Range: 7-18; Units: MG/DL; Status: F Test: CREATININE FOR GFR; Value: 0.79; Range: 0.55-1.02; Units: MG/DL; Status: F Test: GLOMERULAR FILTRATION RATE; Value: > 60.0; Range: >58; Status: F Test: SODIUM LEVEL; Value: 141; Range: 136-145; Units: MEQ/L; Status: F Test: POTASSIUM SERUM; Value: 3.9; Range: 3.5-5.1; Units: MEQ/L; Status: F Test: CHLORIDE LEVEL; Value: 104; Range: 98-107; Units: MEQ/L; Status: F Test: CARBON DIOXIDE LEVEL; Value: 29; Range: 21-32; Units: MEQ/L; Status: F Test: ANION GAP; Value: 8; Range: 8-16; Units: MEQ/L; Status: F Test: CALCIUM LEVEL; Value: 9.4; Range: 8.5-10.1; Units: MG/DL; Status: F Test Note: ; Units are mL/min/1.73 m2 Chronic Kidney Disease Staging per NKF: Stage I & II GFR >=60 Normal to Mildly Decreased Stage III GFR 30-59 Moderately Decreased Stage IV GFR 15-29 Severely Decreased Stage V GFR <15 Very Little GFR Left ESRD GFR <15 on MASH PREPARATORY OPERATOR Lab Order: CBC with Diff; SPEC'M 10/26/16 15:03 Test: WHITE BLOOD COUNT; Value: 11.5; Range: 4.0-10.0; Abnormal: Above high normal; Units: K/mm3; Status: F Test: RED BLOOD COUNT; Value: 5.44; Range: 4.00-5.40; Abnormal: Above high normal; Units: M/mm3; Status: F Test: HEMOGLOBIN; Value: 15.6; Range: 12.0-16.0; Units: g/dl; Status: F Test: HEMATOCRIT; Value: 47.4; Range: 36.0-47.0; Abnormal: Above high normal; Units: %; Status: F Test: MEAN CORPUSCULAR VOLUME; Value: 87.1; Range: 80.0-96.0; Units: fl; Status: F Test: MEAN CORPUSCULAR HEMOGLOBIN; Value: 28.6; Range: 27.0-33.0; Units: pg; Status: F Test: MEAN CORPUSCULAR HGB CONC; Value: 32.9; Range: 32.0-36.5; Units: g/dl; Status: F Test: RED CELL DISTRIBUTION WIDTH; Value: 13.1; Range: 11.5-14.5; Units: %; Status: F Test: PLATELET COUNT, AUTOMATED; Value: 393; Range: 150-450; Units: k/mm3; Status: F Test: NEUTROPHILS %; Value: 70.4; Range: 36.0-66.0; Abnormal: Above high normal; Units: %; Status: F Test: LYMPH %; Value: 22.1; Range: 24.0-44.0; Abnormal: Below low normal; Units: %; Status: F Test: MONO %; Value: 3.3; Range: 0.0-5.0; Units: %; Status: F Test: EOS %; Value: 1.4; Range: 0.0-3.0; Units: %; Status: F Test: BASO %; Value: 1.6; Range: 0.0-1.0; Abnormal: Above high normal; Units: %; Status: F Test: LARGE UNSTAINED CELL %; Value: 1.2; Range: 0.0-4.0; Units: %; Status: F Test: NEUTROPHILS #; Value: 8.1; Range: 1.8-7.7; Abnormal: Above high normal; Units: K/mm3; Status: F Test: LYMPH #; Value: 2.6; Range: 1.5-4.5; Units: K/mm3; Status: F Test: MONO #; Value: 0.4; Range: 0.0-0.8; Units: K/mm3; Status: F Test: EOS #; Value: 0.2; Range: 0.0-0.50; Units: K/mm3; Status: F Test: BASO #; Value: 0.2; Range: 0.0-0.2; Units: K/mm3; Status: F Test: LARGE UNSTAINED CELL #; Value: 0.1; Range: 0.0-0.4; Units: K/mm3; Status: F Lab Order: Lipase; SPEC'M 10/26/16 15:03 Test: LIPASE; Value: 143; Range: 73-393; Units: U/L; Status: F Lab Order: Liver Profile; SPEC'M 10/26/16 15:03 Test: AST/SGOT; Value: 15; Range: 15-37; Units: U/L; Status: F Test: ALT/SGPT; Value: 21; Range: 12-78; Units: U/L; Status: F Test: ALKALINE PHOSPHATASE; Value: 130; Range: 45-117; Abnormal: Above high normal; Units: U/L; Status: F Test: BILIRUBIN,TOTAL; Value: 0.4; Range: 0.2-1.0; Units: MG/DL; Status: F Test: BILIRUBIN,DIRECT; Value: 0.1; Range: 0.0-0.2; Units: MG/DL; Status: F Test: TOTAL PROTEIN; Value: 8.2; Range: 6.4-8.2; Units: GM/DL; Status: F Test: ALBUMIN; Value: 3.8; Range: 3.2-5.2; Units: GM/DL; Status: F Test: ALBUMIN/GLOBULIN RATIO; Value: 0.86; Range: 1.00-1.93; Abnormal: Below low normal; Status: F Lab Order: Urinalysis; SPEC'M 10/26/16 14:55 Test: APPEARANCE, URINE; Value: HAZY; Range: CLEAR; Status: F Test: COLOR, URINE; Value: YELLOW; Range: YELLOW; Status: F Test: PH,URINE; Value: 5.0; Range: 5.0-9.0; Units: UNITS; Status: F Test: SPECIFIC GRAVITY URINE AUTO; Value: 1.026; Range: 1.002-1.035; Status: F Test: PROTEIN, URINE AUTO; Value: NEGATIVE; Range: NEGATIVE; Units: mg/dL; Status: F Test: GLUCOSE, URINE (UA) AUTO; Value: NEGATIVE; Range: NEGATIVE; Units: mg/dL; Status: F Test: KETONE, URINE AUTO; Value: NEGATIVE; Range: NEGATIVE; Units: mg/dL; Status: F Test: UROBILINOGEN, URINE AUTO; Value: 0.2; Range: 0.0-2.0; Units: mg/dL; Status: F Test: BILIRUBIN, URINE AUTO; Value: NEGATIVE; Range: NEGATIVE; Status: F Test: NITRITE, URINE AUTO; Value: NEGATIVE; Range: NEGATIVE; Status: F Test: LEUKOCYTE ESTERASE, URINE AUTO; Value: NEGATIVE; Range: NEGATIVE; Status: F Test: BLOOD, URINE BLOOD; Value: NEGATIVE; Range: NEGATIVE; Status: F Test: WBC, URINE AUTO; Value: 2; Range: 0-3; Units: /HPF; Status: F Test: RBC, URINE AUTO; Value: 3; Range: 0-3; Units: /HPF; Status: F Test: BACTERIA, URINE AUTO; Value: 1+; Range: NEGATIVE; Abnormal: Above high normal; Status: F Test: SQUAMOUS EPITHELIAL CELL UR AU; Value: 3; Range: 0-6; Units: /HPF; Status: F Test: MUCUS, URINE; Value: SMALL; Range: NEGATIVE; Status: F Test: HYALINE CAST, URINE AUTO; Value: 0; Range: 0-1; Units: /LPF; Status: F Lab Order: Urine Culture; SPEC'M 10/26/16 14:54 Test: URINE CULTURE; Value: ORGANISM 1: ENTEROBACTER AEROGENES; Status: F Test: URINE CULTURE; Value: ENTEROBACTER AEROGENES; Status: F Test: URINE CULTURE; Value: COLONY COUNT CFU/ml >100,000; Status: F Test: URINE CULTURE; Value: GRAM NEG SENSI - VITEK 80; Status: F Test: URINE CULTURE; Value: Method: VIT2; Status: F Test: URINE CULTURE; Value: TRIMETHOPRIM/SULFAMETHOXAZOLE <=20 S; Status: F Test: URINE CULTURE; Value: GENTAMICIN <=1 S; Status: F Test: URINE CULTURE; Value: NITROFURANTOIN 64 I; Status: F Test: URINE CULTURE; Value: CEFAZOLIN >=64 R; Status: F Test: URINE CULTURE; Value: LEVOFLOXACIN <=0.12 S; Status: F Test: URINE CULTURE; Value: TOBRAMYCIN <=1 S; Status: F Test: URINE CULTURE; Value: CEFTRIAXONE <=1 S; Status: F Test: URINE CULTURE; Value: CEFTAZIDIME <=1 S; Status: F Test: URINE CULTURE; Value: PIPERACILLIN/TAZOBACTAM 8 S; Status: F Test: URINE CULTURE; Value: AZTREONAM <=1 S; Status: F Test: URINE CULTURE; Value: ERTAPENEM <=0.5 S; Status: F Test: URINE CULTURE; Value: MEROPENEM <=0.25 S; Status: F Test: URINE CULTURE; Value: TIGECYCLINE 1 S; Status: F Test: URINE CULTURE; Value: CEFEPIME <=1 S; Status: F Lab Order: CRP; SPEC'M 10/26/16 15:03 Test: C REACTIVE PROTEIN QUANTITATIV; Value: 0.59; Range: 0.00-0.30; Abnormal: Above high normal; Units: MG/DL; Status: F Radiology Order: CT ABD & PELVIS: IV and Oral Contrast Test: CT ABD & PELVIS: IV and Oral Contrast REASON FOR EXAMINATION: epigastric pain, hx of mult surg; CT ABDOMEN AND PELVIS WITH IV AND ORAL CONTRAST:; ; HISTORY: Epigastric pain. History of multiple surgeries.; ; CT CONTRAST DOSE: 100 mL Isovue-370 is administered intravenously.; ; FINDINGS: Preliminary digital activities director scouting radiograph demonstrates an unremarkable bowel; gas pattern. The patient is status-post lumbosacral spine surgical fusion. There; are clips in the right upper quadrant of the abdomen. The lung bases are clear.; The liver and the spleen are normal in size, homogenous in texture. No adrenal; lesion is seen on either side. There are sutures in the left upper quadrant; consistent with gastric bypass surgery. The kidney enhance symmetrically and are; morphologically intact. No retroperitoneal mass or adenopathy is seen. A normal; appendix is seen in the right lower quadrant. Patient is also status-post; hysterectomy. No abdominal wall defect is seen. No bony destructive lesion is; appreciated. There is no evidence of free intraperitoneal air, abdominal mass,; ascites, or abscess.; ; IMPRESSION:; ; No acute intraabdominal abnormality, postoperative changes including; post-cholecystectomy, gastric bypass, lumbosacral spine fusion, and hysterectomy.; ; ; ; Signed by; Justino Chandler MD 10/26/2016 07:28 P; Outcome: 17:48 Discharge ordered by Provider. ar2 17:53 Discharge Assessment: Patient awake, alert and oriented x 3. No cognitive and/or js13 functional deficits noted. Patient verbalized understanding of disposition instructions. patient administered narcotics - no. The following High Risk Discharge criteria are identified: None. Discharged to home ambulatory, with family. Condition: stable. Discharge instructions given to patient, Instructed on discharge instructions, follow up and referral plans. medication usage, Demonstrated understanding of instructions, medications, Pt was receptive of discharge instructions/ teaching. Prescriptions given X 1. CT Study completed. 17:54 Patient left the ED. js13 Addendum: 10/29/2016 13:06 Narrative: Urine culture results reviewed with Gunner Camacho and Rx written for Bactrim DS kcs 1 tab BID x 5 days - patient contacted and requests [facility] in [place]. Rx called in. Signatures: Dispatcher [employer] EDMS Luz Elena Eaton, RN RN kcs Josee Gabriel, RN RN srm Barmerary, Dania, Reg Reg gb Rhoda Simpson, HIGH SCHOOL MUSIC DIRECTOR HIGH SCHOOL MUSIC DIRECTOR jb5 Frank Poe PA-C PAAnthony ar2 Azucena Pak RN RN js13 New, Tamra Resendez mm15 Karina Robledo PA-C PA-Vangie dt4 Amanda Vaca,ELISA RN ms18 Crystal Barreto, HIGH SCHOOL MUSIC DIRECTOR HIGH SCHOOL MUSIC DIRECTOR rs6 Kitty, Rosanna munoz Chart Complete MTDD
--- NOTE | 2016-10-30 09:34 | EDDOCDS ---
Physician Documentation [facility] Name: Richelle Grajeda Age: 46 yrs Sex: Female : 1970 Arrival Date: 10/26/2016 Time: 13:37 Bed I3 / M3 Private MD: Pernell Prescott [facility] Disposition: 10/26/16 17:48 Discharged to Home/Self Care. Impression: Gastritis, unspecified. - Condition is Stable. - Discharge Instructions: Gastritis, Adult. - Prescriptions for Prilosec 20 mg Oral Capsule, Delayed Release(E.C.) - take 1 capsule by ORAL route every 12 hours; 20 capsule. - Medication Reconciliation, Local Pharmacy Hours form. - Follow up: Private Physician; When: Call to arrange an appointment; Reason: Recheck today's complaints, Continuance of care. Follow up: Emergency Department; When: As needed; Reason: Fever > 102F, Worsening of conditions. - Problem is new. - Symptoms are unchanged. Historical: - Allergies: hctz (Rash); - Home Meds: 1. vitamins daily 2. Mytab Gas 80 mg oral chew as needed - PMHx: Asthma; Hypertension; - PSHx: Cholecystectomy; Hysterectomy; Tubal ligation; back surgery x2; D & C; Gastric Bypass; - Social history: Smoking status: Patient states was never smoker of tobacco. No barriers to communication noted, The patient speaks fluent Japanese, Speaks appropriately for age. - Family history: Not pertinent. - : The pt / caregiver states he / she is not on anticoagulants. Home medication list is obtained from the patient. - Exposure Risk Screening:: None identified. 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 2 in. (157.48 cm); Pain 7/10; 14:21 BP 140 / 89 Sitting (man/lg); jb5 17:54 BP 138 / 93 RA Sitting (auto/lg); Pulse 72; Resp 18; Temp 97.5(T); Pulse Ox 99% on R/A; rs6 Pain 5/10; 13:38 Body Mass Index 47.74 (118.39 kg, 157.48 cm) sew MDM: 14:01 Recheck B/P ordered. dt4 14:50 ketorolac 30 mg IVP once ordered. dt4 14:50 IV Saline Lock ordered. dt4 14:50 Undress patient appropriately for examination ordered. dt4 14:51 Amylase Ordered. EDMS 14:51 Basic Metabolic Profile Ordered. EDMS 14:51 CBC with Diff Ordered. EDMS 14:51 Lipase Ordered. EDMS 14:51 Liver Profile Ordered. EDMS 14:51 Urinalysis Ordered. EDMS 14:51 Urine Culture Ordered. EDMS 14:51 CRP Ordered. EDMS 14:51 CT ABD & PELVIS: IV and Oral Contrast Ordered. EDMS 14:51 NOTHING BY MOUTH+DIET ordered. EDMS 14:52 Financial registration complete. mm15 15:00 [facility] Payment Agreement was scanned into [employer] and attached to record. mm15 15:01 Diatrizoate Meglumine & Sodium Liquid 10 ml PO once; mix in 290cc of water ordered. js13 15:01 Diatrizoate Meglumine & Sodium Liquid 10 ml PO once; mix in 290cc of water ordered. js13 16:42 CBC with Diff Reviewed. ar2 16:42 Liver Profile Reviewed. ar2 16:42 Urinalysis Reviewed. ar2 16:42 CRP Reviewed. ar2 16:42 Amylase Reviewed. ar2 16:42 Basic Metabolic Profile Reviewed. ar2 16:42 Lipase Reviewed. ar2 10/27 09:28 T-Sheet-- Draft Copy was scanned into [employer] and attached to record. [facility] 11:57 Radiology Report was scanned into [employer] and attached to record. gb Administered Medications: 10/26 15:00 Drug: ketorolac 30 mg [ketorolac 30 mg/mL (1 mL) injection solution (1 mL)] Route: IVP; js13 Site: left antecubital; 15:15 Follow up: Response: Pain is decreased js13 15:01 Drug: Diatrizoate Meglumine & Sodium 10 ml [diatrizoate meglumine and diat.sodium 66 js13 %-10 % oral solution (10 mL)] Route: PO; 15:31 Drug: Diatrizoate Meglumine & Sodium 10 ml [diatrizoate meglumine and diat.sodium 66 js13 %-10 % oral solution (10 mL)] Route: PO; Signatures: Dispatcher [employer] EDJosee Chung, ELISA RN [facility] Dania Bai, Jya Reg gb Frank Poe PA-C PA-C ar2 Azucena Pak RN RN js13 Tamra Velez mm15 Karina Robledo PA-C PA-C dt4 Amanda Vaca RN RN [id number] Rosanna Tang The chart was reviewed and I authenticate all verbal orders and agree with the evaluation and treatment provided.Attachments: 15:00 [facility] Payment Agreement mm15 10/27 09:28 T-Sheet-- Draft Copy [facility] Chart Complete MTDD
--- NOTE | 2016-10-30 09:34 | EDDOCDS ---
Physician Documentation [facility] Name: Richelle Grajeda Age: 46 yrs Sex: Female : 1970 Arrival Date: 10/26/2016 Time: 13:37 Bed I3 / M3 Private MD: Pernell Prescott [facility] Disposition: 10/26/16 17:48 Discharged to Home/Self Care. Impression: Gastritis, unspecified. - Condition is Stable. - Discharge Instructions: Gastritis, Adult. - Prescriptions for Prilosec 20 mg Oral Capsule, Delayed Release(E.C.) - take 1 capsule by ORAL route every 12 hours; 20 capsule. - Medication Reconciliation, Local Pharmacy Hours form. - Follow up: Private Physician; When: Call to arrange an appointment; Reason: Recheck today's complaints, Continuance of care. Follow up: Emergency Department; When: As needed; Reason: Fever > 102F, Worsening of conditions. - Problem is new. - Symptoms are unchanged. Historical: - Allergies: hctz (Rash); - Home Meds: 1. vitamins daily 2. Mytab Gas 80 mg oral chew as needed - PMHx: Asthma; Hypertension; - PSHx: Cholecystectomy; Hysterectomy; Tubal ligation; back surgery x2; D & C; Gastric Bypass; - Social history: Smoking status: Patient states was never smoker of tobacco. No barriers to communication noted, The patient speaks fluent Syriac, Speaks appropriately for age. - Family history: Not pertinent. - : The pt / caregiver states he / she is not on anticoagulants. Home medication list is obtained from the patient. - Exposure Risk Screening:: None identified. 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 2 in. (157.48 cm); Pain 7/10; 14:21 BP 140 / 89 Sitting (man/lg); jb5 17:54 BP 138 / 93 RA Sitting (auto/lg); Pulse 72; Resp 18; Temp 97.5(T); Pulse Ox 99% on R/A; rs6 Pain 5/10; 13:38 Body Mass Index 47.74 (118.39 kg, 157.48 cm) sew MDM: 14:01 Recheck B/P ordered. dt4 14:50 ketorolac 30 mg IVP once ordered. dt4 14:50 IV Saline Lock ordered. dt4 14:50 Undress patient appropriately for examination ordered. dt4 14:51 Amylase Ordered. EDMS 14:51 Basic Metabolic Profile Ordered. EDMS 14:51 CBC with Diff Ordered. EDMS 14:51 Lipase Ordered. EDMS 14:51 Liver Profile Ordered. EDMS 14:51 Urinalysis Ordered. EDMS 14:51 Urine Culture Ordered. EDMS 14:51 CRP Ordered. EDMS 14:51 CT ABD & PELVIS: IV and Oral Contrast Ordered. EDMS 14:51 NOTHING BY MOUTH+DIET ordered. EDMS 14:52 Financial registration complete. mm15 15:00 [facility] Payment Agreement was scanned into [employer] and attached to record. mm15 15:01 Diatrizoate Meglumine & Sodium Liquid 10 ml PO once; mix in 290cc of water ordered. js13 15:01 Diatrizoate Meglumine & Sodium Liquid 10 ml PO once; mix in 290cc of water ordered. js13 16:42 CBC with Diff Reviewed. ar2 16:42 Liver Profile Reviewed. ar2 16:42 Urinalysis Reviewed. ar2 16:42 CRP Reviewed. ar2 16:42 Amylase Reviewed. ar2 16:42 Basic Metabolic Profile Reviewed. ar2 16:42 Lipase Reviewed. ar2 10/27 09:28 T-Sheet-- Draft Copy was scanned into [employer] and attached to record. [facility] 11:57 Radiology Report was scanned into [employer] and attached to record. gb Administered Medications: 10/26 15:00 Drug: ketorolac 30 mg [ketorolac 30 mg/mL (1 mL) injection solution (1 mL)] Route: IVP; js13 Site: left antecubital; 15:15 Follow up: Response: Pain is decreased js13 15:01 Drug: Diatrizoate Meglumine & Sodium 10 ml [diatrizoate meglumine and diat.sodium 66 js13 %-10 % oral solution (10 mL)] Route: PO; 15:31 Drug: Diatrizoate Meglumine & Sodium 10 ml [diatrizoate meglumine and diat.sodium 66 js13 %-10 % oral solution (10 mL)] Route: PO; Signatures: Dispatcher [employer] EDJosee Chung, ELISA RN [facility] Dania Bai, Jay Reg gb Frank Poe PA-C PA-C ar2 Azucena Pak RN RN js13 Tamra Velez mm15 Karina Robledo PA-C PA-C dt4 Amanda Vaca RN RN [id number] Rosanna Tang The chart was reviewed and I authenticate all verbal orders and agree with the evaluation and treatment provided.Attachments: 15:00 [facility] Payment Agreement mm15 10/27 09:28 T-Sheet-- Draft Copy [facility] Chart Complete MTDD
== END 2016-10-26 17:54 | disposition home or self-care (01) ==
LOC: M ED 13:37
DX: K29.70 Gastritis, unspecified, without bleeding (principal); J45.909 Unspecified asthma, uncomplicated; I10 Essential (primary) hypertension; Z98.84 Bariatric surgery status; Z88.8 Allergy status to other drugs, medicaments and biological substances
CPT/HCPCS: 36415; 74177; 80048; 80076; 81001; 82150; 83690; 85025; 86140; 87088; 87186; 96374; 99284; J1885; Q9963; Q9967

== ENCOUNTER → 2016-11-10 | Outpatient (CLI) | payer OTHER ==
[2016-11-10 16:02] LABS: BASO % 0.4 % (0.0-1.0); EOS # 0.1 K/mm3 (0.0-0.50); EOS % 1.3 % (0.0-3.0); LARGE UNSTAINED CELL # 0.2 K/mm3 (0.0-0.4); LARGE UNSTAINED CELL % 1.5 % (0.0-4.0); LYMPH # 2.6 K/mm3 (1.5-4.5); LYMPH % 26.5 % (24.0-44.0); MEAN CORPUSCULAR HEMOGLOBIN 28.7 pg (27.0-33.0); MEAN CORPUSCULAR HGB CONC 32.7 g/dl (32.0-36.5); MEAN CORPUSCULAR VOLUME 87.8 fl (80.0-96.0); MONO # 0.4 K/mm3 (0.0-0.8); MONO % 4.2 % (0.0-5.0); NEUTROPHILS # 6.5 K/mm3 (1.8-7.7); PLATELET COUNT, AUTOMATED 291 k/mm3 (150-450); RED CELL DISTRIBUTION WIDTH 13.4 % (11.5-14.5); WHITE BLOOD COUNT 9.8 K/mm3 (4.0-10.0)
[2016-11-10 16:32] LABS: ALBUMIN/GLOBULIN RATIO 0.91 (1.00-1.93); ALKALINE PHOSPHATASE 94 U/L (45-117); ALT/SGPT 16 U/L (12-78); ANION GAP 8 MEQ/L (8-16); AST/SGOT 11 U/L (15-37); BILIRUBIN,TOTAL 0.2 MG/DL (0.2-1.0); BLOOD UREA NITROGEN 17 MG/DL (7-18); CALCIUM LEVEL 8.3 MG/DL (8.5-10.1); CARBON DIOXIDE LEVEL 28 MEQ/L (21-32); CHLORIDE LEVEL 107 MEQ/L (98-107); CREATININE FOR GFR 0.64 MG/DL (0.55-1.02); FERRITIN 53 NG/ML (8-252); GLOMERULAR FILTRATION RATE > 60.0 (>58); GLUCOSE, FASTING 71 MG/DL (70-105); MAGNESIUM LEVEL 2.3 MG/DL (1.8-2.4); PERCENT SATURATION 11.1 % (13.2-37.4); PHOSPHORUS LEVEL 3.5 MG/DL (2.5-4.9); POTASSIUM SERUM 4.2 MEQ/L (3.5-5.1); SODIUM LEVEL 143 MEQ/L (136-145); TOTAL IRON BINDING CAPACITY 324 UG/DL (250-450); TOTAL PROTEIN 6.3 GM/DL (6.4-8.2)
[2016-11-12 11:05] LABS: VITAMIN B12 LEVEL 462 PG/ML (247-911)
[2016-11-13 11:24] LABS: PRETREATED FOLATE FOR RBCFOL 8.4 NG/ML
== END | disposition home or self-care (01) ==
LOC: M LAB 15:02
PROVIDERS: ATTEND Surgery
DX: E55.9 Vitamin D deficiency, unspecified (principal); K91.2 Postsurgical malabsorption, not elsewhere classified; Z98.84 Bariatric surgery status

== ENCOUNTER → 2016-11-26 | Outpatient (REF) | payer OTHER | END | disposition home or self-care (01) | LOC: M LAB REF 20:02 | PROVIDERS: ATTEND Physician Assistant | DX: J02.9 Acute pharyngitis, unspecified (principal) ==

== ENCOUNTER → 2016-12-04 | Outpatient (REF) | payer OTHER ==
[2016-12-04 18:50] LABS: BASO # 0.1 K/mm3 (0.0-0.2); BASO % 0.8 % (0.0-1.0); EOS # 0.2 K/mm3 (0.0-0.50); EOS % 1.9 % (0.0-3.0); LARGE UNSTAINED CELL # 0.1 K/mm3 (0.0-0.4); LARGE UNSTAINED CELL % 1.3 % (0.0-4.0); LYMPH # 2.6 K/mm3 (1.5-4.5); LYMPH % 30.3 % (24.0-44.0); MEAN CORPUSCULAR HEMOGLOBIN 28.6 pg (27.0-33.0); MEAN CORPUSCULAR HGB CONC 32.6 g/dl (32.0-36.5); MEAN CORPUSCULAR VOLUME 87.7 fl (80.0-96.0); MONO # 0.4 K/mm3 (0.0-0.8); MONO % 4.1 % (0.0-5.0); NEUTROPHILS # 5.2 K/mm3 (1.8-7.7); NEUTROPHILS % 61.5 % (36.0-66.0); PLATELET COUNT, AUTOMATED 303 k/mm3 (150-450); RED CELL DISTRIBUTION WIDTH 13.3 % (11.5-14.5); WHITE BLOOD COUNT 8.5 K/mm3 (4.0-10.0)
[2016-12-05 08:07] LABS: CONTROL LINE MONO RF C INT CTR LINE PRESENT
== END | disposition home or self-care (01) ==
LOC: M LABDRWAD 16:22
PROVIDERS: ATTEND Physician Assistant Medical
DX: J02.9 Acute pharyngitis, unspecified (principal)

== ENCOUNTER → 2017-05-20 | Outpatient (CLI) | payer OTHER ==
[2017-05-20 15:14] LABS: BASO % 0.5 % (0.0-1.0); EOS # 0.1 K/mm3 (0.0-0.50); EOS % 1.2 % (0.0-3.0); LARGE UNSTAINED CELL # 0.1 K/mm3 (0.0-0.4); LARGE UNSTAINED CELL % 0.9 % (0.0-4.0); LYMPH # 2.2 K/mm3 (1.5-4.5); LYMPH % 25.5 % (24.0-44.0); MEAN CORPUSCULAR HEMOGLOBIN 30.2 pg (27.0-33.0); MEAN CORPUSCULAR VOLUME 88.9 fl (80.0-96.0); MONO # 0.3 K/mm3 (0.0-0.8); MONO % 3.5 % (0.0-5.0); NEUTROPHILS # 5.7 K/mm3 (1.8-7.7); NEUTROPHILS % 68.4 % (36.0-66.0); PLATELET COUNT, AUTOMATED 294 k/mm3 (150-450); RED CELL DISTRIBUTION WIDTH 13.1 % (11.5-14.5); WHITE BLOOD COUNT 8.3 K/mm3 (4.0-10.0)
[2017-05-20 15:36] LABS: ALBUMIN 3.3 GM/DL (3.2-5.2); ALBUMIN/GLOBULIN RATIO 0.89 (1.00-1.93); ALKALINE PHOSPHATASE 86 U/L (45-117); ALT/SGPT 21 U/L (12-78); ANION GAP 10 MEQ/L (8-16); AST/SGOT 15 U/L (15-37); BILIRUBIN,TOTAL 0.4 MG/DL (0.2-1.0); BLOOD UREA NITROGEN 17 MG/DL (7-18); CARBON DIOXIDE LEVEL 24 MEQ/L (21-32); CHLORIDE LEVEL 106 MEQ/L (98-107); CREATININE FOR GFR 0.79 MG/DL (0.55-1.02); FERRITIN 88 NG/ML (8-252); GLOMERULAR FILTRATION RATE > 60.0 (>58); GLUCOSE, FASTING 85 MG/DL (70-105); MAGNESIUM LEVEL 2.5 MG/DL (1.8-2.4); PERCENT SATURATION 26.5 % (13.2-37.4); PHOSPHORUS LEVEL 3.9 MG/DL (2.5-4.9); POTASSIUM SERUM 4.3 MEQ/L (3.5-5.1); SODIUM LEVEL 140 MEQ/L (136-145); TOTAL IRON BINDING CAPACITY 374 UG/DL (250-450)
[2017-05-20 15:44] LABS: VITAMIN B12 LEVEL 614 PG/ML (247-911)
[2017-05-21 13:22] LABS: PRETREATED FOLATE FOR RBCFOL 8.9 NG/ML
== END ==
LOC: M LAB 14:41
PROVIDERS: ATTEND Surgery
DX: K91.2 Postsurgical malabsorption, not elsewhere classified (principal); Z98.84 Bariatric surgery status; E55.9 Vitamin D deficiency, unspecified

== ENCOUNTER → 2018-01-22 | Outpatient (CLI) | payer MEDICARE, MEDICAID, OTHER | LOC: M RAD 17:16 | DX: M50.322 Other cervical disc degeneration at C5-C6 level (principal); M50.321 Other cervical disc degeneration at C4-C5 level | CPT/HCPCS: 72052 ==

== ENCOUNTER → 2018-02-11 | Outpatient (REF) | payer MEDICARE, MEDICAID | LOC: M SFHCWAGY 15:07 | DX: Z12.72 Encounter for screening for malignant neoplasm of vagina (principal) | CPT/HCPCS: G0123 ==

== ENCOUNTER → 2018-05-26 | Outpatient (CLI) | payer MEDICAID, MEDICARE ==
[2018-05-26 10:36] LABS: BASO % 0.6 % (0.0-1.0); EOS # 0.1 10^3/uL (0.0-0.50); EOS % 1.3 % (0.0-3.0); HEMATOCRIT 45.9 % (36.0-47.0); HEMOGLOBIN 14.8 g/dl (12.0-15.5); IMMATURE GRANULOCYTE % 0.3 % (0-3.0); LYMPH # 2.2 10^3/uL (1.5-4.5); LYMPH % 31.4 % (24.0-44.0); MEAN CORPUSCULAR HEMOGLOBIN 29.2 pg (27.0-33.0); MEAN CORPUSCULAR HGB CONC 32.2 g/dl (32.0-36.5); MEAN CORPUSCULAR VOLUME 90.7 fl (80.0-96.0); MONO # 0.3 10^3/uL (0.0-0.8); MONO % 4.5 % (0.0-5.0); NEUTROPHILS # 4.3 10^3/uL (1.8-7.7); NEUTROPHILS % 61.9 % (36.0-66.0); PLATELET COUNT, AUTOMATED 284 10^3/uL (150-450); RED BLOOD COUNT 5.06 10^6/uL (4.00-5.40); RED CELL DISTRIBUTION WIDTH 12.5 % (11.5-14.5); WHITE BLOOD COUNT 6.9 10^3/uL (4.0-10.0)
[2018-05-26 10:40] LABS: HEMATOCRIT 45.9 % (36.0-47.0)
[2018-05-26 10:50] LABS: ESTIMATED AVERAGE GLUCOSE 97 MG/DL (60-110)
[2018-05-26 10:56] LABS: ALBUMIN 3.1 GM/DL (3.2-5.2); ALBUMIN/GLOBULIN RATIO 0.84 (1.00-1.93); ALKALINE PHOSPHATASE 86 U/L (45-117); ALT/SGPT 24 U/L (12-78); ANION GAP 7 MEQ/L (8-16); AST/SGOT 14 U/L (7-37); BILIRUBIN,TOTAL 0.4 MG/DL (0.2-1.0); BLOOD UREA NITROGEN 11 MG/DL (7-18); CALCIUM LEVEL 8.8 MG/DL (8.5-10.1); CARBON DIOXIDE LEVEL 30 MEQ/L (21-32); CHLORIDE LEVEL 105 MEQ/L (98-107); CREATININE FOR GFR 0.76 MG/DL (0.55-1.30); FERRITIN 155 NG/ML (8-252); GLOMERULAR FILTRATION RATE > 60.0 (>58); GLUCOSE, FASTING 78 MG/DL (70-100); IRON (FE) 82 UG/DL (50-170); MAGNESIUM LEVEL 2.4 MG/DL (1.8-2.4); PERCENT SATURATION 26.4 % (13.2-45.0); PHOSPHORUS LEVEL 3.7 MG/DL (2.5-4.9); POTASSIUM SERUM 4.2 MEQ/L (3.5-5.1); SODIUM LEVEL 142 MEQ/L (136-145); TOTAL IRON BINDING CAPACITY 311 UG/DL (250-450); TOTAL PROTEIN 6.8 GM/DL (6.4-8.2)
[2018-05-26 11:15] LABS: TOTAL 25(OH) VITAMIN D 43.4 NG/ML (30.0-100.0)
[2018-05-26 11:16] LABS: VITAMIN B12 LEVEL 963 PG/ML (247-911)
[2018-05-27 12:34] LABS: PRETREATED FOLATE FOR RBCFOL 9.7 NG/ML; RBC FOLATE 443.8 NG/ML (280-791)
== END ==
LOC: M LAB 09:33
DX: K91.2 Postsurgical malabsorption, not elsewhere classified (principal); E55.9 Vitamin D deficiency, unspecified; Z98.84 Bariatric surgery status
CPT/HCPCS: 83550

== ENCOUNTER → 2018-11-22 | Outpatient (CLI) | payer MEDICAID ==
[2018-11-22 12:56] LABS: BASO # 0.1 10^3/uL (0.0-0.2); BASO % 0.6 % (0.0-1.0); EOS # 0.1 10^3/uL (0.0-0.50); EOS % 1.3 % (0.0-3.0); HEMATOCRIT 44.3 % (36.0-47.0); HEMOGLOBIN 14.6 g/dl (12.0-15.5); LYMPH # 2.5 10^3/uL (1.5-4.5); LYMPH % 28.6 % (24.0-44.0); MEAN CORPUSCULAR HEMOGLOBIN 30.4 pg (27.0-33.0); MEAN CORPUSCULAR VOLUME 92.1 fl (80.0-96.0); MONO # 0.6 10^3/uL (0.0-0.8); MONO % 6.4 % (0.0-5.0); NEUTROPHILS # 5.4 10^3/uL (1.8-7.7); NEUTROPHILS % 62.9 % (36.0-66.0); PLATELET COUNT, AUTOMATED 284 10^3/uL (150-450); RED BLOOD COUNT 4.81 10^6/uL (4.00-5.40); WHITE BLOOD COUNT 8.6 10^3/uL (4.0-10.0)
[2018-11-22 13:14] LABS: BLOOD UREA NITROGEN 16 MG/DL (7-18); CALCIUM LEVEL 8.8 MG/DL (8.5-10.1); CARBON DIOXIDE LEVEL 27 MEQ/L (21-32); CHLORIDE LEVEL 104 MEQ/L (98-107); CREATININE FOR GFR 0.76 MG/DL (0.55-1.30); GLOMERULAR FILTRATION RATE > 60.0 (>58); GLUCOSE, FASTING 76 MG/DL (70-100); SODIUM LEVEL 138 MEQ/L (136-145)
== END ==
LOC: M LAB 12:25
PROVIDERS: ATTEND Nurse Practitioner Family
DX: Z01.812 Encounter for preprocedural laboratory examination (principal)

== ENCOUNTER 2019-09-13 12:30 | Emergency (ER) | payer MEDICAID, OTHER ==
[~2019-09-13] VITALS: Ht 157.5 cm; Wt 108.2 kg
[2019-09-13] MEDS ORDERED: OMEP-218 (13:55)
[2019-09-13] MEDS ORDERED: VITA-157 PO (13:55)
[2019-09-13] MEDS ORDERED: CYCL10TA (13:55)
[2019-09-13] MEDS ORDERED: CIPR250T3 (13:55)
[2019-09-13] MEDS ORDERED: GABA-1171 (13:55)
[2019-09-13] MEDS ORDERED: NORT50CA (13:55)
[2019-09-13 15:18] LABS: BASO # 0.1 10^3/uL (0.0-0.2); BASO % 0.6 % (0.0-1.0); EOS # 0.1 10^3/uL (0.0-0.5); EOS % 1.2 % (0.0-3.0); HEMATOCRIT 45.1 % (36.0-47.0); HEMOGLOBIN 14.5 g/dl (12.0-15.5); LYMPH # 2.6 10^3/uL (1.5-5.0); LYMPH % 30.2 % (24.0-44.0); MEAN CORPUSCULAR HEMOGLOBIN 29.6 pg (27.0-33.0); MEAN CORPUSCULAR HGB CONC 32.2 g/dl (32.0-36.5); MONO # 0.5 10^3/uL (0.0-0.8); MONO % 5.3 % (0.0-5.0); NEUTROPHILS # 5.4 10^3/uL (1.5-8.5); NEUTROPHILS % 62.1 % (36.0-66.0); PLATELET COUNT, AUTOMATED 307 10^3/uL (150-450); WHITE BLOOD COUNT 8.7 10^3/uL (4.0-10.0)
[2019-09-13] MEDS ORDERED: ISOVUE-370 76% 100ML VIAL (Q9967) As Ordered ONE (15:18)
[2019-09-13 16:53] VITALS: BP 112/65
--- NOTE | 2019-09-14 07:56 | REP ---
REASON FOR EXAM: Neck mass. There are no priors for comparison. CONTRAST: 100 mL Isovue-370. There is no mediastinal or hilar adenopathy. There are no pleural or pericardial effusions. The imaged upper abdomen and imaged osseous structures are within normal limits. Evaluation of the lung brownlee shows no abnormal nodules, masses, or opacities. IMPRESSION: CT chest is within normal limits. Electronically Signed by Hugo Limon DO 09/14/2019 12:08 P
--- NOTE | 2019-09-14 08:35 | REP ---
REASON: Painful swallowing. CONTRAST: 100 mL Isovue 370. There are no priors for comparison. The parapharyngeal, retropharyngeal, pharyngomucosal, carotid, commercial carpenter, and parotid spaces are within normal limits. The prevertebral and harrison-spinal components of the perivertebral space are within normal limits. In the infrahyoid neck the aforementioned neck spaces along with the posterior cervical space are within normal limits. There is no evidence of a mass or adenopathy. There is no evidence of mass or mass effect. The technologist placed a bb marker on the skin left neck at the level of the mandibular symphysis or just proximal to that and there is no subjacent abnormality. IMPRESSION: CT findings are within normal limits. Electronically Signed by Hugo Limon DO 09/14/2019 12:11 P
== END 2019-09-13 16:58 | disposition home or self-care (01) ==
LOC: M ED 12:30
DX: R59.0 Localized enlarged lymph nodes (principal); Z88.8 Allergy status to other drugs, medicaments and biological substances
CPT/HCPCS: 70491; 71260; 80047; 85025; 87880; 99284; Q9967

== ENCOUNTER → 2019-12-22 | Outpatient (REF) | payer OTHER, MEDICAID ==
[~2019-12-22] MED LIST: CIPR250T3; CYCL10TA; GABA-1171; NORT50CA; OMEP-218; VITA-157 PO
== END ==
LOC: M SFHCWAGY 13:09
PROVIDERS: ATTEND Nurse Practitioner Family
DX: N90.7 Vulvar cyst (principal)

== ENCOUNTER → 2020-02-23 | Outpatient (REF) | payer OTHER ==
[~2020-02-23] MED LIST changes: +CYCL-707; -CYCL10TA
== END ==
LOC: M LAB REF 18:32
PROVIDERS: ATTEND Physician Assistant
DX: J02.9 Acute pharyngitis, unspecified (principal)

== ENCOUNTER → 2020-03-25 | Outpatient (REF) | payer OTHER, MEDICAID ==
[2020-03-25 12:41] LABS: CHOLESTEROL RISK RATIO 3.5 (<5)
== END ==
LOC: M LAB REF 11:35
PROVIDERS: ATTEND Nurse Practitioner Family
DX: E78.5 Hyperlipidemia, unspecified (principal)

== ENCOUNTER → 2020-04-01 | Outpatient (CLI) | payer OTHER ==
--- NOTE | 2020-04-01 16:44 | REP ---
BILATERAL DIAGNOSTIC MAMMOGRAM WITH BILATERAL BREAST ULTRASOUND WITH 3D TOMOSYNTHESIS: HISTORY: Lump retroareolar region bilaterally. Family history of breast cancer in paternal cousin. Tyrer-zick lifetime risk of breast cancer 13.4%. Comparison mammogram 05/04/2019, [facility]. Volpara breast density A. Bilateral mammogram performed in the MLO and CC projections with 3D tomosynthesis. Additional spot compression views of the retroareolar regions are performed bilaterally. There is mild fibroglandular tissue again seen with no change in the pattern compared to the prior study. No new mass or architectural distortion is seen. No clustered microcalcifications are seen. Normal axillary lymph nodes are again seen bilaterally. Real-time sonographic evaluation of retroareolar regions performed bilaterally in the region of the reported palpable lumps. There is no cystic or solid mass bilaterally. IMPRESSION: BIRADS 2: BI-RADS/ACR category 2 mammogram. Benign Findings. ACR 2 benign. No mass or clustered microcalcifications bilaterally with no change since prior mammogram. There is no mammographic or sonographic evidence of a suspicious mass in either retroareolar region. A negative mammogram and ultrasound should not deter biopsy if there is a clinically suspicious palpable mass present. Clinical correlation and followup is recommended. Recommend followup mammogram in 1 year. This mammogram was interpreted with the aid of an FDA-approved computer-aided detection system. The patient states she/he had a clinical breast exam in 03/2020. The patient letter being requested is M2.
== END ==
LOC: M WHC 10:29
PROVIDERS: ATTEND Nurse Practitioner Family
DX: N63.42 Unspecified lump in left breast, subareolar (principal); N63.41 Unspecified lump in right breast, subareolar
CPT/HCPCS: 76642; 77066; G0279

== ENCOUNTER → 2020-07-23 | Outpatient (CLI) | payer OTHER ==
[2020-07-23 12:02] LABS: BASO % 0.4 % (0.0-1.0); EOS # 0.1 10^3/uL (0.0-0.5); HEMATOCRIT 42.3 % (36.0-47.0); HEMOGLOBIN 13.3 g/dl (12.0-15.5); LYMPH % 29.3 % (24.0-44.0); MEAN CORPUSCULAR HEMOGLOBIN 28.2 pg (27.0-33.0); MEAN CORPUSCULAR HGB CONC 31.4 g/dl (32.0-36.5); MEAN CORPUSCULAR VOLUME 89.8 fl (80.0-96.0); MONO # 0.4 10^3/uL (0.0-0.8); MONO % 5.9 % (0.0-5.0); NEUTROPHILS # 4.3 10^3/uL (1.5-8.5); NEUTROPHILS % 62.1 % (36.0-66.0); PLATELET COUNT, AUTOMATED 262 10^3/uL (150-450); RED BLOOD COUNT 4.71 10^6/uL (4.00-5.40); WHITE BLOOD COUNT 6.9 10^3/uL (4.0-10.0)
[2020-07-23 12:12] LABS: ALBUMIN 3.1 GM/DL (3.2-5.2); ALT/SGPT 19 U/L (12-78); BILIRUBIN,TOTAL 0.5 MG/DL (0.2-1.0); BLOOD UREA NITROGEN 13 MG/DL (7-18); CALCIUM LEVEL 8.9 MG/DL (8.5-10.1); CARBON DIOXIDE LEVEL 28 MEQ/L (21-32); CHLORIDE LEVEL 107 MEQ/L (98-107); CHOLESTEROL LEVEL 196 MG/DL (<200); CHOLESTEROL RISK RATIO 3.062 (<5); CREATININE FOR GFR 0.74 MG/DL (0.55-1.30); GLOMERULAR FILTRATION RATE > 60.0 (>58); GLUCOSE, FASTING 85 MG/DL (70-100); HDL CHOLESTEROL 64 MG/DL (>40); LDL CHOLESTEROL 112 MG/DL (<100); NON-HDL-C 132 MG/DL; POTASSIUM SERUM 4.1 MEQ/L (3.5-5.1); SODIUM LEVEL 139 MEQ/L (136-145); TOTAL PROTEIN 6.7 GM/DL (6.4-8.2); TRIGLYCERIDES LEVEL 101 MG/DL (<150)
== END ==
LOC: M LAB 11:19
PROVIDERS: ATTEND Nurse Practitioner Family
DX: E78.5 Hyperlipidemia, unspecified (principal); E66.01 Morbid (severe) obesity due to excess calories; G60.9 Hereditary and idiopathic neuropathy, unspecified; M54.9 Dorsalgia, unspecified; Z13.9 Encounter for screening, unspecified

== ENCOUNTER → 2021-01-26 | Outpatient (REF) | payer OTHER ==
[~2021-01-26] MED LIST changes: -VITA-157 PO; +VITAE40CA PO
[2021-01-26 13:06] LABS: BASO % 0.3 % (0.0-1.0); EOS # 0.1 10^3/uL (0.0-0.5); EOS % 1.4 % (0.0-3.0); HEMATOCRIT 47.5 % (36.0-47.0); HEMOGLOBIN 14.9 g/dl (12.0-15.5); LYMPH # 1.8 10^3/uL (1.5-5.0); LYMPH % 21.1 % (24.0-44.0); MEAN CORPUSCULAR HEMOGLOBIN 28.7 pg (27.0-33.0); MEAN CORPUSCULAR HGB CONC 31.4 g/dl (32.0-36.5); MEAN CORPUSCULAR VOLUME 91.5 fl (80.0-96.0); MONO # 0.5 10^3/uL (0.0-0.8); MONO % 5.3 % (2.0-8.0); NEUTROPHILS # 6.1 10^3/uL (1.5-8.5); NEUTROPHILS % 71.4 % (36.0-66.0); PLATELET COUNT, AUTOMATED 301 10^3/uL (150-450); RED BLOOD COUNT 5.19 10^6/uL (4.00-5.40); WHITE BLOOD COUNT 8.6 10^3/uL (4.0-10.0)
[2021-01-26 13:14] LABS: APPEARANCE, URINE CLOUDY (CLEAR); BACTERIA, URINE AUTO 1+ (NEGATIVE); BILIRUBIN, URINE AUTO NEGATIVE (NEGATIVE); BLOOD, URINE BLOOD 1+ (NEGATIVE); COLOR, URINE YELLOW (YELLOW); GLUCOSE, URINE (UA) AUTO NEGATIVE (NEGATIVE); KETONE, URINE AUTO NEGATIVE (NEGATIVE); LEUKOCYTE ESTERASE, URINE AUTO 3+ (NEGATIVE); MUCUS, URINE SMALL (NEGATIVE); NITRITE, URINE AUTO NEGATIVE (NEGATIVE); PROTEIN, URINE AUTO 1+ mg/dL (NEGATIVE); RBC, URINE AUTO 16 /HPF (0-3); SQUAMOUS EPITHELIAL CELL UR AU 7 /HPF (0-6); UROBILINOGEN, URINE AUTO 0.2 mg/dL (0.0-2.0); WBC, URINE AUTO 67 /HPF (0-3)
[2021-01-26 13:30] LABS: HEMOGLOBIN A1c 5.3 %
[2021-01-26 13:45] LABS: ALBUMIN 3.3 GM/DL (3.2-5.2); ALT/SGPT 19 U/L (12-78); BILIRUBIN,TOTAL 0.4 MG/DL (0.2-1.0); BLOOD UREA NITROGEN 12 MG/DL (7-18); CALCIUM LEVEL 9.1 MG/DL (8.5-10.1); CARBON DIOXIDE LEVEL 26 MEQ/L (21-32); CHLORIDE LEVEL 105 MEQ/L (98-107); CHOLESTEROL LEVEL 213 MG/DL (<200); CREATININE FOR GFR 0.75 MG/DL (0.55-1.30); FERRITIN 83 NG/ML (8-252); FREE T4 0.98 NG/DL (0.76-1.46); GLOMERULAR FILTRATION RATE > 60.0 (>58); GLUCOSE, FASTING 80 MG/DL (70-100); HDL CHOLESTEROL 71 MG/DL (>40); IRON (FE) 85 UG/DL (50-170); LDL CHOLESTEROL 115 MG/DL (<100); NON-HDL-C 142 MG/DL; PERCENT SATURATION 23.4 % (13.2-45.0); SODIUM LEVEL 139 MEQ/L (136-145); TOTAL IRON BINDING CAPACITY 364 UG/DL (250-450); TOTAL PROTEIN 7.4 GM/DL (6.4-8.2); TRIGLYCERIDES LEVEL 134 MG/DL (<150)
[2021-01-26 13:46] LABS: TOTAL 25(OH) VITAMIN D 14.3 NG/ML (30.0-100.0); VITAMIN B12 LEVEL 311 PG/ML
== END ==
LOC: M LAB REF 11:47
PROVIDERS: ATTEND Nurse Practitioner Family
DX: Z00.00 Encounter for general adult medical examination without abnormal findings (principal); E66.9 Obesity, unspecified; K21.9 Gastro-esophageal reflux disease without esophagitis; G89.4 Chronic pain syndrome

== ENCOUNTER → 2021-02-21 | Outpatient (CLI) | payer OTHER | LOC: M WHC 14:30 | PROVIDERS: ATTEND Nurse Practitioner Women's Health | DX: Z53.9 Procedure and treatment not carried out, unspecified reason (principal); Z12.31 Encounter for screening mammogram for malignant neoplasm of breast ==

== ENCOUNTER → 2021-03-22 | Outpatient (CLI) | payer OTHER | LOC: M LABSMTC 12:31 | PROVIDERS: ATTEND Orthopaedic Surgery | DX: Z01.812 Encounter for preprocedural laboratory examination (principal) ==

== ENCOUNTER → 2021-03-24 | Outpatient (REF) | payer OTHER ==
[2021-03-24 10:22] LABS: BASO % 0.3 % (0.0-1.0); EOS # 0.1 10^3/uL (0.0-0.5); EOS % 0.6 % (0.0-3.0); HEMOGLOBIN 13.3 g/dl (12.0-15.5); LYMPH # 2.3 10^3/uL (1.5-5.0); LYMPH % 20.6 % (24.0-44.0); MEAN CORPUSCULAR HEMOGLOBIN 29.5 pg (27.0-33.0); MEAN CORPUSCULAR HGB CONC 31.7 g/dl (32.0-36.5); MEAN CORPUSCULAR VOLUME 93.1 fl (80.0-96.0); MONO # 0.6 10^3/uL (0.0-0.8); MONO % 5.3 % (2.0-8.0); NEUTROPHILS % 72.8 % (36.0-66.0); PLATELET COUNT, AUTOMATED 272 10^3/uL (150-450); RED BLOOD COUNT 4.51 10^6/uL (4.00-5.40); WHITE BLOOD COUNT 10.9 10^3/uL (4.0-10.0)
[2021-03-24 10:51] LABS: ALT/SGPT 15 U/L (12-78); BILIRUBIN,TOTAL 0.2 MG/DL (0.2-1.0); BLOOD UREA NITROGEN 11 MG/DL (7-18); CALCIUM LEVEL 8.5 MG/DL (8.5-10.1); CARBON DIOXIDE LEVEL 25 MEQ/L (21-32); CHLORIDE LEVEL 109 MEQ/L (98-107); CREATININE FOR GFR 0.58 MG/DL (0.55-1.30); GLOMERULAR FILTRATION RATE > 60.0 (>58); GLUCOSE, FASTING 60 MG/DL (70-100); POTASSIUM SERUM 3.8 MEQ/L (3.5-5.1); SODIUM LEVEL 141 MEQ/L (136-145); TOTAL PROTEIN 6.5 GM/DL (6.4-8.2)
== END ==
LOC: M LAB REF 10:07
PROVIDERS: ATTEND Nurse Practitioner Family
DX: Z01.818 Encounter for other preprocedural examination (principal)

== ENCOUNTER → 2021-04-03 | Outpatient (CLI) | payer OTHER ==
--- NOTE | 2021-04-03 15:59 | REPMRS ---
Patient History The patient states she had a clinical breast exam in February 2021. Family history of ovarian cancer in paternal cousin, breast cancer in paternal cousin. Tomosynthesis is performed. Volpara breast density is b. [facility] Covid vaccine 03/13/21 left arm. Patient states no breast complaints today. Patient has signed MRS History Sheet. Digital Woman Screen Mammo: April 03, 2021 - Exam #: [id number] Bilateral CC and MLO view(s) were taken. Technologist: RT Love Prior study comparison: April 01, 2020, diagnostic bilateral mammo performed at [facility]. FINDINGS: There are scattered fibroglandular densities. There has been no change in the appearance of the mammogram from the prior studies. There is a mild amount of residual fibroglandular tissue which is fairly symmetric. There is no interval development of dominant mass, architectural distortion, or clustered microcalcification suggestive of malignancy. Assessment: BI-RADS/ACR category 1 mammogram. Negative Mammogram. Recommendation Routine screening mammogram in 1 year (for women over age 40). This mammogram was interpreted with the aid of an FDA-approved computer-aided dectection system. Electronically Signed By: Chaim Forte MD 04/03/21 [id number]
== END ==
LOC: M WHC 14:56
PROVIDERS: ATTEND Nurse Practitioner Women's Health
DX: Z12.31 Encounter for screening mammogram for malignant neoplasm of breast (principal)

== ENCOUNTER → 2021-05-16 | Outpatient (CLI) | payer OTHER ==
--- NOTE | 2021-05-16 15:16 | REP ---
INDICATION: LT LEG PAIN SWELLING ? DVT. COMPARISON: None. TECHNIQUE: Left {lower extremity duplex venous scanning is performed from the groin to the ankle level. FINDINGS: The deep veins are anechoic and fully compressible from the groin to the popliteal fossa in the left lower extremity. Color flow imaging is homogeneous. Spectral Doppler interrogation demonstrates intact respiratory variation in flow and normal manual augmentation of flow. There is no evidence of deep vein thrombosis above the knee. There is no evidence of DVT in the visualized calf veins. Doppler interrogation of the contralateral common femoral vein shows normal symmetric respiratory phasicity. IMPRESSION: No evidence of DVT in the left lower extremity femoropopliteal veins. No DVT in the visible portions of the calf veins. <Electronically signed by Landon Chandler > 05/16/21 [id number]
== END ==
LOC: M RAD 14:36
PROVIDERS: ATTEND Physician Assistant Surgical
DX: R22.42 Localized swelling, mass and lump, left lower limb (principal)

== ENCOUNTER → 2021-11-28 | Outpatient (REF) | payer OTHER, MEDICAID ==
[~2021-11-28] MED LIST changes: +OMEP-173; -OMEP-218
[2021-11-28 12:12] LABS: AMORPHOUS SEDIMENT MODERATE (NEGATIVE); APPEARANCE, URINE TURBID (CLEAR); BACTERIA, URINE AUTO NEGATIVE (NEGATIVE); BILIRUBIN, URINE AUTO NEGATIVE (NEGATIVE); BLOOD, URINE BLOOD NEGATIVE (NEGATIVE); COLOR, URINE YELLOW (YELLOW); GLUCOSE, URINE (UA) AUTO NEGATIVE (NEGATIVE); KETONE, URINE AUTO NEGATIVE (NEGATIVE); LEUKOCYTE ESTERASE, URINE AUTO 1+ (NEGATIVE); MUCUS, URINE SMALL (NEGATIVE); NITRITE, URINE AUTO NEGATIVE (NEGATIVE); PROTEIN, URINE AUTO NEGATIVE (NEGATIVE); RBC, URINE AUTO 2 /HPF (0-3); SPECIFIC GRAVITY URINE AUTO 1.026 (1.002-1.035); SQUAMOUS EPITHELIAL CELL UR AU 15 /HPF (0-6); WBC, URINE AUTO 4 /HPF (0-3)
[2021-11-28 12:45] LABS: TOTAL PROTEIN,RANDOM URINE 24.7 MG/DL (0.0-12.0)
[2021-11-28 12:48] LABS: C REACTIVE PROTEIN QUANTITATIV 0.4 MG/DL (0.00-0.30)
[2021-11-29 10:22] LABS: DRVV SCREEN 46.5 SEC
[2021-11-29 10:24] LABS: PTT LUPUS TYPE ANTICOAG SCREEN 1.3 (0-1.2)
[2021-11-29 10:32] LABS: DRVV CONFIRM 46.1 SEC; LUPUS CONFIRM RATIO 1.2; NORMALIZED RATIO 1.08 (0.00-1.20)
== END ==
LOC: M SFHCRHEU 10:08
PROVIDERS: ATTEND Internal Medicine
DX: R76.8 Other specified abnormal immunological findings in serum (principal); M25.40 Effusion, unspecified joint

== ENCOUNTER → 2022-01-01 | Outpatient (CLI) | payer OTHER, MEDICAID | LOC: M ADAMS 09:12 | PROVIDERS: ATTEND Internal Medicine | DX: M25.40 Effusion, unspecified joint (principal) ==

== ENCOUNTER → 2022-04-06 | Outpatient (CLI) | payer OTHER | LOC: M PLAIMG 13:46 | PROVIDERS: ATTEND Internal Medicine | DX: M71.341 Other bursal cyst, right hand (principal); M79.89 Other specified soft tissue disorders ==

== ENCOUNTER → 2022-07-06 | Outpatient (CLI) | payer OTHER ==
[2022-07-06 13:57] LABS: APPEARANCE, URINE MANUAL CLOUDY (CLEAR); BILIRUBIN, URINE MANUAL NEGATIVE (NEGATIVE); BLOOD URINE MANUAL TRACE (NEGATIVE); COLOR, URINE MANUAL LT YELLOW (YELLOW); GLUCOSE, URINE (UA) MANUAL NEGATIVE (NEGATIVE); KETONE, URINE MANUAL NEGATIVE (NEGATIVE); LEUKOCYTE ESTERASE, URINE MAN POSITIVE (NEGATIVE); NITRITE, URINE MANUAL POSITIVE (NEGATIVE); PROTEIN, URINE MANUAL NEGATIVE (NEGATIVE); SPECIFIC GRAVITY,URINE MANUAL 1.025 (1.002-1.035); UROBILINOGEN, URINE MANUAL NORMAL (NORMAL)
[2022-07-06 14:11] LABS: BACTERIA, URINE LARGE AMOUNT; SQUAMOUS EPITHELIAL CELL URINE LARGE AMOUNT /hpf (SMALL AMT); WBC, URINE TNTC /hpf (0-3)
[2022-07-06 14:12] LABS: HYALINE CAST, URINE NONE SEEN /lpf (0-1); RBC, URINE 0-1 /hpf (0-3)
== END ==
LOC: M LAB 13:02
PROVIDERS: ATTEND Internal Medicine
DX: R76.8 Other specified abnormal immunological findings in serum (principal)

== ENCOUNTER → 2022-07-31 | Outpatient (REF) | payer OTHER | LOC: M LAB REF 12:15 | PROVIDERS: ATTEND Nurse Practitioner Family | DX: J02.9 Acute pharyngitis, unspecified (principal) ==

== ENCOUNTER → 2022-08-03 | Outpatient (CLI) | payer OTHER | LOC: M WHC 15:53 | PROVIDERS: ATTEND Nurse Practitioner Family | DX: Z12.31 Encounter for screening mammogram for malignant neoplasm of breast (principal) ==

== ENCOUNTER 2022-09-17 19:52 | Emergency (ER) | payer OTHER ==
[~2022-09-17] VITALS: Ht 157.5 cm; Wt 111.4 kg
[2022-09-17 19:53] VITALS: BP 141/94
[2022-09-17] MEDS ORDERED: LISI5TAB11 (20:25)
[2022-09-17 22:07] LABS: RSV AMPLIFICATION POSITIVE (NEGATIVE)
== END 2022-09-18 00:25 | disposition left against medical advice (07) ==
LOC: M ED 19:52
DX: Z53.21 Procedure and treatment not carried out due to patient leaving prior to being seen by health care provider (principal)

== ENCOUNTER → 2022-09-18 | Outpatient (REF) | payer OTHER ==
[~2022-09-18] MED LIST changes: +LISI5TAB11
== END ==
LOC: M LAB REF 16:56
PROVIDERS: ATTEND Nurse Practitioner Family
DX: J02.9 Acute pharyngitis, unspecified (principal)

== ENCOUNTER → 2022-09-25 | Outpatient (CLI) | payer OTHER | LOC: M RAD 11:33 | PROVIDERS: ATTEND Nurse Practitioner Family | DX: R07.9 Chest pain, unspecified (principal) ==

== ENCOUNTER → 2022-10-18 | Outpatient (CLI) | payer OTHER | LOC: M RAD 10:07 | PROVIDERS: ATTEND Nurse Practitioner Family | DX: M25.511 Pain in right shoulder (principal) ==

== ENCOUNTER → 2022-11-10 | Outpatient (CLI) | payer OTHER | LOC: M RAD 14:00 | PROVIDERS: ATTEND Nurse Practitioner Family | DX: M67.813 Other specified disorders of tendon, right shoulder (principal); M19.011 Primary osteoarthritis, right shoulder; M94.211 Chondromalacia, right shoulder ==

== ENCOUNTER → 2022-11-13 | Outpatient (REF) | payer OTHER ==
[2022-11-13 16:57] LABS: HEMOGLOBIN A1c 5.1 % (4.0-6.0)
[2022-11-13 17:29] LABS: ALBUMIN 3.3 G/DL (3.2-5.2); ALKALINE PHOSPHATASE 109 U/L (46-116); ALT/SGPT 25 U/L (7.0-40); AST/SGOT 33 U/L (<34); BILIRUBIN,TOTAL 0.5 MG/DL (0.3-1.2); BLOOD UREA NITROGEN 18 MG/DL (9-23); CALCIUM LEVEL 9.2 MG/DL (8.5-10.1); CARBON DIOXIDE LEVEL 27 MMOL/L (20-31); CHLORIDE LEVEL 105 MMOL/L (98-107); CHOLESTEROL LEVEL 178 MG/DL (<200); CHOLESTEROL RISK RATIO 2.71 (<5); CREATININE FOR GFR 0.78 MG/DL (0.55-1.30); GLOMERULAR FILTRATION RATE > 60.0 (>51); GLUCOSE, FASTING 100 MG/DL (60-100); HDL CHOLESTEROL 65.6 MG/DL (>40); LDL CHOLESTEROL 98.6 MG/DL (<100); NON-HDL-C 112 MG/DL; POTASSIUM SERUM 4.7 MMOL/L (3.5-5.1); SODIUM LEVEL 138 MMOL/L (136-145); TOTAL PROTEIN 6.7 G/DL (5.7-8.2); TRIGLYCERIDES LEVEL 69 MG/DL (<150)
[2022-11-13 17:30] LABS: BASO # 0.1 10^3/uL (0.0-0.2); BASO % 0.8 % (0.0-1.0); EOS # 0.2 10^3/uL (0.0-0.5); EOS % 1.9 % (0.0-3.0); HEMOGLOBIN 13.4 g/dl (12.0-15.5); LYMPH # 3.7 10^3/uL (1.5-5.0); LYMPH % 37.4 % (24.0-44.0); MEAN CORPUSCULAR HEMOGLOBIN 28.3 pg (27.0-33.0); MEAN CORPUSCULAR HGB CONC 30.5 g/dl (32.0-36.5); MEAN CORPUSCULAR VOLUME 92.8 fl (80.0-96.0); MONO # 0.6 10^3/uL (0.0-0.8); MONO % 6.1 % (2.0-8.0); NEUTROPHILS # 5.3 10^3/uL (1.5-8.5); NEUTROPHILS % 53.5 % (36.0-66.0); PLATELET COUNT, AUTOMATED 331 10^3/uL (150-450); RED BLOOD COUNT 4.74 10^6/uL (4.00-5.40)
[2022-11-13 17:31] LABS: THYROID STIMULATING HORMONE 3.387 uIU/ML (0.55-4.78)
== END ==
LOC: M LAB REF 16:16
PROVIDERS: ATTEND Nurse Practitioner Family
DX: E16.2 Hypoglycemia, unspecified (principal); Z13.228 Encounter for screening for other metabolic disorders

== ENCOUNTER → 2023-03-27 | Outpatient (REF) | payer OTHER ==
[2023-03-27 15:52] LABS: GC DNA AMPLIFICATION NEGATIVE (NEGATIVE)
== END ==
LOC: M LAB REF 12:23
PROVIDERS: ATTEND Nurse Practitioner Family
DX: Z11.3 Encounter for screening for infections with a predominantly sexual mode of transmission (principal)

== ENCOUNTER 2023-11-09 05:09 | Emergency (ER) | payer BC, OTHER ==
[~2023-11-09] VITALS: Ht 157.5 cm; Wt 116.6 kg
[2023-11-09] MEDS ORDERED: TRAM50TA2 PO ×2 (09:24→09:38)
[2023-11-09 09:38] VITALS: BP 168/106; TEMP 98; O2SAT 98
== END 2023-11-09 09:40 | disposition home or self-care (01) ==
LOC: M ED 05:09
DX: M25.551 Pain in right hip (principal); J02.9 Acute pharyngitis, unspecified; I10 Essential (primary) hypertension; G47.33 Obstructive sleep apnea (adult) (pediatric); K21.9 Gastro-esophageal reflux disease without esophagitis; Z88.8 Allergy status to other drugs, medicaments and biological substances; Z79.811 Long term (current) use of aromatase inhibitors; Z79.83 Long term (current) use of bisphosphonates; Z79.899 Other long term (current) drug therapy

== ENCOUNTER → 2023-12-12 | Outpatient (REF) | payer BC ==
[~2023-12-12] MED LIST changes: +TRAM50TA2 PO
[2023-12-12 17:54] LABS: BASO # 0.1 10^3/uL (0.0-0.2); BASO % 0.7 % (0.0-1.0); EOS # 0.2 10^3/uL (0.0-0.5); EOS % 1.7 % (0.0-3.0); HEMATOCRIT 40.2 % (36.0-47.0); HEMOGLOBIN 12.3 g/dl (12.0-15.5); LYMPH # 3.3 10^3/uL (1.5-5.0); LYMPH % 33.2 % (24.0-44.0); MEAN CORPUSCULAR HEMOGLOBIN 25.4 pg (27.0-33.0); MEAN CORPUSCULAR HGB CONC 30.6 g/dl (32.0-36.5); MEAN CORPUSCULAR VOLUME 82.9 fl (80.0-96.0); MONO # 0.7 10^3/uL (0.0-0.8); MONO % 7.3 % (2.0-8.0); NEUTROPHILS # 5.6 10^3/uL (1.5-8.5); NEUTROPHILS % 56.9 % (36.0-66.0); PLATELET COUNT, AUTOMATED 385 10^3/uL (150-450); RED BLOOD COUNT 4.85 10^6/uL (4.00-5.40); WHITE BLOOD COUNT 9.9 10^3/uL (4.0-10.0)
[2023-12-12 18:18] LABS: ALBUMIN 3.5 G/DL (3.2-5.2); ALKALINE PHOSPHATASE 125 U/L (46-116); ALT/SGPT 22 U/L (7.0-40); AST/SGOT 25 U/L (<34); BILIRUBIN,TOTAL 0.4 MG/DL (0.3-1.2); BLOOD UREA NITROGEN 17 MG/DL (9-23); CALCIUM LEVEL 9.5 MG/DL (8.5-10.1); CARBON DIOXIDE LEVEL 27 MMOL/L (20-31); CHLORIDE LEVEL 105 MMOL/L (98-107); CHOLESTEROL LEVEL 192 MG/DL (<200); CHOLESTEROL RISK RATIO 2.81 (<5); CREATININE FOR GFR 0.67 MG/DL (0.55-1.30); GLOMERULAR FILTRATION RATE > 60.0 (>51); GLUCOSE, FASTING 90 MG/DL (60-100); HDL CHOLESTEROL 68.1 MG/DL (>40); LDL CHOLESTEROL 107.7 MG/DL (<100); MAGNESIUM LEVEL 2.4 MG/DL (1.8-2.4); NON-HDL-C 123.9 MG/DL; POTASSIUM SERUM 4.3 MMOL/L (3.5-5.1); SODIUM LEVEL 138 MMOL/L (136-145); TOTAL PROTEIN 7.4 G/DL (5.7-8.2); TRIGLYCERIDES LEVEL 81 MG/DL (<150)
[2023-12-12 18:19] LABS: THYROID STIMULATING HORMONE 3.271 uIU/ML (0.55-4.78); TOTAL 25(OH) VITAMIN D 27.3 NG/ML (20.0-100.0)
[2023-12-12 18:21] LABS: HEMOGLOBIN A1c 5.5 % (4.0-6.0)
== END ==
LOC: M LAB REF 16:24
PROVIDERS: ATTEND Nurse Practitioner Family
DX: E66.01 Morbid (severe) obesity due to excess calories (principal); E55.9 Vitamin D deficiency, unspecified